=== PATIENT | male | born 1970 | race Caucasian/White ===

== ENCOUNTER → 2017-12-26 13:45 | Outpatient (CLI) | payer OTHER, SELFPAY ==
[2017-12-26 16:13] LABS: ALB/GLOB Ratio 1.1 RATIO (0.9-2.4); AST(SGOT) 20 U/L (15-37); Alanine Aminotransfer ALT/SGPT 37 U/L (16-61); Albumin, Serum 4.1 g/dL (3.2-5.0); Alkaline Phosphatase 81 U/L (45-117); Anion Gap 8 (5-15); BUN 19 mg/dL (7-18); BUN/Creat Ratio 27.5 RATIO (10-20); Calcium,Total 8.5 mg/dL (8.5-10.1); Chloride 103 mmol/L (98-107); Cholesterol 81 mg/dL (200); Creatinine, Serum 0.69 mg/dL (0.70-1.30); EST Glomerular Filtration Rate 130 mL/min (>60); Est Glom Filt Rate - Afr Amer 158 mL/min (>60); Globulin 3.6 g/dL (2.2-4.2); Glucose 80 mg/dL (74-106); High Density Lipoprotein 33 mg/dL; Potassium 4.2 mmol/L (3.5-5.1); Protein, Total 7.7 g/dL (6.4-8.2); Sodium Level 138 mmol/L (136-145); Triglycerides 85 mg/dL; Very Low Density Lipoprotein 17 mg/dL (5-40)
== END ==
PROVIDERS: Family Provider Family Medicine; PCP Family Medicine; Visit Provider Family Medicine
DX: E11.9 Type 2 diabetes mellitus without complications (principal)
CPT/HCPCS: 36415; 80053; 80061

== ENCOUNTER 2018-04-09 20:35 | Emergency (ER) | payer OTHER, SELFPAY ==
[2018-04-09 20:36] VITALS: BP 137/86; PULSE 79; RESP 18; TEMP 37.1; O2SAT 98; BMI 27.2
--- NOTE | 2018-04-09 21:25 | ED.VISSUMM ---
- ER Visit Summary Date of Service: 04/09/18 Chief Complaint: [Facial laceration] History of Present Illness: The patient is a 47 M [presents the emergency department with complaint of laceration to the left side of his face. Patient states that he was cutting some banding at work when he went to throw it he had not cut the opposite end of it and it sprung back and struck him in the left side of his face. Patient states that he is on some sort of a blood thinner but cannot think of the name of it. Patient has had cardiac stents in the past. Patient is a diabetic.] Patient does not want to file this under workman's comp. Physical Examination: [HEENT-PERRLA, EOMI. Cranial nerves II through XII grossly intact. TMs clear. Mucous membranes moist. No adenopathy. Left side of the face just anterior to the ear there is a superficial abrasion with a small 5 mm laceration that is oozing blood persistently. No bony tenderness. No foreign bodies noted in the wound. Cardiovascular-regular rate and rhythm without murmur or ectopy Lungs-clear to auscultation, chest wall stable without crepitus or subcu emphysema Abdomen-normoactive bowel sounds, soft, nontender, no rebound or rigidity, no peritoneal signs. Extremities-intact ?4, normal range of motion, normal pulses, atraumatic] Test Results: [None indicated] Emergency Department Course and Treatment: [Laceration repair-wound sterilely draped and prepped. Wound cleansed with Shur-Clens and irrigated with copious saline. Patient did not want anesthetic. Using 5-0 nylon 1 single interrupted suture placed with good wound edge approximation and hemostasis was obtained.] Treatment Plan: [Patient will have clean dressing applied and advised to have sutures removed in 5 days.] Disposition: [Discharged home in stable condition] Impression: [Facial laceration 5 mm-simple repair] This note was generated with [employer] dictation software. It may contain incorrect words, spelling, and punctuation that were not noted in review of the chart prior to signing ED Disposition - Plan for ED Patient: Chief Complaint: Laceration Referrals: Jason Howell MD [Primary Care Provider] -
--- NOTE | 2018-04-09 21:27 | ED.DEP ---
ED Disposition - Plan for ED Patient: Chief Complaint: Laceration Instructions: ED Laceration Facial Sutr Tape Referrals: Jason Howell MD [Primary Care Provider] - 5 Days for suture removal
[2018-04-09 21:53] VITALS: RESP 16
--- NOTE | 2018-04-09 21:54 | ED.RN ---
REVIEWED D/C INSTRUCTIONS, FOLLOW UP CARE, AND S/S THAT WOULD WARRANT A RETURN TO THE ED WITH PT. PT VERBALIZED AN UNDERSTANDING AND DENIES FURTHER QUESTIONS FOR THIS RN. PT SKIN P/W/D, RESP EVEN AND UNLABORED, PT A&O X 3, NO DISTRESS NOTED. PT AMBULATED OUT OF ED, GAIT STEADY.
== END 2018-04-09 21:55 | disposition home or self-care (01) ==
PROVIDERS: Emergency Provider Emergency Medicine; Family Provider Family Medicine; PCP Family Medicine
DX: S01.412A Laceration without foreign body of left cheek and temporomandibular area, initial encounter (principal); E11.9 Type 2 diabetes mellitus without complications; I25.10 Atherosclerotic heart disease of native coronary artery without angina pectoris; Z72.0 Tobacco use; Z95.5 Presence of coronary angioplasty implant and graft; Z79.4 Long term (current) use of insulin; Z79.899 Other long term (current) drug therapy; W20.8XXA Other cause of strike by thrown, projected or falling object, initial encounter; Y93.89 Activity, other specified; Y92.89 Other specified places as the place of occurrence of the external cause; Y99.0 Civilian activity done for income or pay
CPT/HCPCS: 12011; 99282

== ENCOUNTER → 2018-04-13 09:23 | Outpatient (CLI) | payer OTHER, SELFPAY ==
[2018-04-13 11:58] LABS: Erythrocyte Sedimentation Rate 4 mm/hr (0-15)
[2018-04-13 12:05] LABS: Absolute Lymphocyte Count 3.15 X10^3/ul (0.83-4.51); Absolute Neutrophil Count 5.4 X10^3/uL (2.0-7.7); Basophil# 0.03 X10^3/uL; Basophil% 0.3 % (0-1); Eosinophil# 0.24 X10^3/uL; Eosinophils% 2.5 % (0-5); Hematocrit 49.6 % (40-54); Hemoglobin 17.8 g/dl (13.0-16.5); Lymphocyte # 3.15 X10^3/ul (4.0); Lymphocyte % 32.6 % (19-41); Mean Corp Hgb Conc 35.9 g/gl (32-36); Mean Corpuscular Hgb 35.5 pg (27.0-32.0); Mean Corpuscular Volume 98.8 fL (80-94); Mean Platelet Vol. 11.8 fl (6.2-12.0); Monocyte# 0.85 X10^3/uL; Monocyte% 8.8 % (0-10); Neutrophil # 5.37 X10^3/uL (2.7-7.7); Neutrophil % 55.6 % (47-70); Platelet Count 183 K/mm3 (150-450); RBC Distribution Width CV 12.5 % (11.6-14.6); Red Blood Count 5.02 M/mm3 (4.6-6.2); White Blood Count 9.7 K/mm3 (4.4-11.0)
[2018-04-13 12:09] LABS: POSITIVE COUNT NO; POSITIVE DIFFERENTIAL NO; POSITIVE MORPHOLOGY NO
[2018-04-13 12:20] LABS: ALB/GLOB Ratio 1.1 RATIO (0.9-2.4); AST(SGOT) 59 U/L (15-37); Alanine Aminotransfer ALT/SGPT 69 U/L (16-61); Albumin, Serum 4.1 g/dL (3.2-5.0); Alkaline Phosphatase 137 U/L (45-117); Anion Gap 10 (5-15); BUN 14 mg/dL (7-18); BUN/Creat Ratio 15.3 RATIO (10-20); Calcium,Total 9.5 mg/dL (8.5-10.1); Chloride 101 mmol/L (98-107); Creatinine, Serum 0.92 mg/dL (0.70-1.30); EST Glomerular Filtration Rate 94 mL/min (>60); Est Glom Filt Rate - Afr Amer 114 mL/min (>60); Globulin 3.8 g/dL (2.2-4.2); Glucose 350 mg/dL (74-106); Potassium 4.4 mmol/L (3.5-5.1); Protein, Total 7.9 g/dL (6.4-8.2); Sodium Level 138 mmol/L (136-145)
== END ==
PROVIDERS: Family Provider Family Medicine; PCP Family Medicine; Visit Provider Family Medicine
DX: R63.4 Abnormal weight loss (principal)
CPT/HCPCS: 36415; 80053; 85025; 85652

== ENCOUNTER → 2018-07-09 08:31 | Outpatient (CLI) | payer OTHER, SELFPAY ==
[2018-07-09 10:26] LABS: ALB/GLOB Ratio 1.2 RATIO (0.9-2.4); AST(SGOT) 22 U/L (15-37); Alanine Aminotransfer ALT/SGPT 40 U/L (16-61); Alkaline Phosphatase 99 U/L (45-117); Anion Gap 9 (5-15); BUN 11 mg/dL (7-18); BUN/Creat Ratio 14.8 RATIO (10-20); Calcium,Total 8.9 mg/dL (8.5-10.1); Chloride 104 mmol/L (98-107); Cholesterol 97 mg/dL (200); Creatinine, Serum 0.74 mg/dL (0.70-1.30); EST Glomerular Filtration Rate 120 mL/min (>60); Est Glom Filt Rate - Afr Amer 145 mL/min (>60); Globulin 3.4 g/dL (2.2-4.2); Glucose 159 mg/dL (74-106); High Density Lipoprotein 33 mg/dL; Potassium 3.7 mmol/L (3.5-5.1); Protein, Total 7.4 g/dL (6.4-8.2); Sodium Level 139 mmol/L (136-145); Thyroid Stim Hormone (TSH) 1.45 uIU/mL (0.358-3.74); Triglycerides 146 mg/dL; Very Low Density Lipoprotein 29 mg/dL (5-40)
== END ==
PROVIDERS: Family Provider Family Medicine; PCP Family Medicine; Visit Provider Family Medicine
DX: E11.9 Type 2 diabetes mellitus without complications (principal)
CPT/HCPCS: 36415; 80053; 80061; 84403; 84443

== ENCOUNTER → 2019-07-22 | Outpatient (CLI) | payer OTHER, SELFPAY ==
[2019-07-22 10:46] LABS: ALB/GLOB Ratio 1.1 RATIO (0.9-2.4); AST(SGOT) 31 U/L (15-37); Alanine Aminotransfer ALT/SGPT 41 U/L (16-61); Albumin, Serum 3.9 g/dL (3.2-5.0); Alkaline Phosphatase 97 U/L (45-117); Anion Gap 8 (5-15); BUN 16 mg/dL (7-18); BUN/Creat Ratio 17.6 RATIO (10-20); CRP, High Sensitivity Cardiac 0.54 mg/L; Calcium,Total 9.1 mg/dL (8.5-10.1); Chloride 103 mmol/L (98-107); Cholesterol 126 mg/dL (200); Creatinine, Serum 0.91 mg/dL (0.70-1.30); EST Glomerular Filtration Rate 95 mL/min (>60); Est Glom Filt Rate - Afr Amer 114 mL/min (>60); Globulin 3.5 g/dL (2.2-4.2); Glucose 206 mg/dL (74-106); High Density Lipoprotein 32 mg/dL; Protein, Total 7.4 g/dL (6.4-8.2); Sodium Level 140 mmol/L (136-145); Thyroid Stim Hormone (TSH) 1.45 uIU/mL (0.358-3.74); Triglycerides 354 mg/dL; Very Low Density Lipoprotein 71 mg/dL (5-40)
== END | disposition home or self-care (01) ==
LOC: MFPLAB 09:26
PROVIDERS: Family Provider Family Medicine; PCP Family Medicine; Visit Provider Family Medicine
DX: E11.9 Type 2 diabetes mellitus without complications (principal)
CPT/HCPCS: 36415; 80053; 80061; 84403; 84443; 86141

== ENCOUNTER 2019-09-17 21:43 | Inpatient (IN) | payer OTHER, SELFPAY ==
[2019-09-17 21:45] VITALS: PULSE 71; RESP 18; TEMP 37.3; O2SAT 95; BMI 29.7
--- NOTE | 2019-09-17 22:00 | CT_ITS ---
HISTORY: CONFUSION,FEVER,HEADACHE AND DIFFICULT SPEECH SINCE CHRISTMASHX:HTN,DIABETES,IL WITH STENT TECHNIQUE: Multiple axial images were obtained of the brain without intravenous contrast. A radiation dose optimization technique was used for this scan. COMPARISON: None FINDINGS: # of images incl. paperwork: 257 Mucuo-serous retention cyst within the right maxillary sinus. The remainder the paranasal sinuses and mastoid air cells are free of disease. Brain volume is normal. Carranza-white differentiation is preserved. No hydrocephalus. No acute ischemia. No acute intracranial hemorrhage. CT/Brain/Head without Contrast IMPRESSION: Normal. ASPECT 10. Individualized dose optimization techniques were used for this CT. at 6997 Reported and signed by: Mazin Kennedy MD Electronically Signed: Mazin Kennedy MD at 22:57 EST Tel , Service support ,
--- NOTE | 2019-09-17 22:00 | EKG12_ITS ---
Test Reason : Blood Pressure : / mmHG Vent. Rate : 075 BPM Atrial Rate : 075 BPM P-R Int : 138 ms QRS Dur : 122 ms QT Int : 380 ms P-R-T Axes : 035 -44 020 degrees QTc Int : 424 ms Normal sinus rhythm Left axis deviation Septal infarct , age undetermined Abnormal ECG Confirmed by URI SORTO, SAMANTA ([id number]), digital editor AJAY IGLESIAS ([id number]) on 09/21/2019 9:50:17 AM Referred By: BENEDICTO Confirmed By:SAMANTA GREWAL MD
--- NOTE | 2019-09-17 22:01 | RAD_ITS ---
HISTORY: CONFUSION, DIFFICULTY WITH SPEECH. FEVER AND SCHULTZ X 3 DAYS. EXAM: XR Chest 1 View: COMPARISON: June 09, 2015 FINDINGS: # of images incl. paperwork: 1 Lungs are clear. Heart is not enlarged. No acute osseous pathology perceived. Pulmonary vascularity is distinct. No effusions. RAD/Chest 1 View (Portable) IMPRESSION: Normal. at 2221 Reported and signed by: Mazin Kennedy MD Electronically Signed: Mazin Kennedy MD at 22:20 EST Tel , Service support ,
[2019-09-17 22:17] LABS: Bacteria 0 SEEN /hpf (None Seen); Mucous, Urine 0 SEEN /hpf (<or=2+); Red Blood Cells-Urine 0 SEEN /hpf (0-5); Squamous Epithelial Cells - UA 0 SEEN /hpf (0-5); White Blood Cells 0 SEEN /hpf (0-5)
[2019-09-17 22:20] LABS: Color, Urine Yellow (Yellow); Glucose, Dipstick 1000 mg/dl (Normal); Ketone-Dipstick 5 mg/dl (Negative); Leukocyte Esterase-Dipstick Negative /ul (Negative); Nitrite-Dipstick Negative (Negative); Occult Blood-Urine Negative /ul (Negative); Protein-Dipstick Negative (Negative); Urine Bilirubin Dipstick Negative (Negative); Urine Clarity Clear (Clear); Urine Urobilinogen Normal (Normal)
[2019-09-17 22:20] LABS: Absolute Neutrophil Count 9.5 X10^3/uL (2.0-7.7); Basophil# 0.04 X10^3/uL; Basophil% 0.3 % (0-1); Eosinophil# 0.01 X10^3/uL; Eosinophils% 0.1 % (0-5); Hematocrit 42.9 % (40-54); Hemoglobin 15.1 g/dL (13.0-16.5); Lymphocyte % 17.9 % (19-41); Mean Corp Hgb Conc 35.2 g/dL (32-36); Mean Corpuscular Hgb 34.7 pg (27.0-32.0); Mean Corpuscular Volume 98.6 fL (80-94); Mean Platelet Vol. 10.8 fl (6.2-12.0); Monocyte# 1.45 X10^3/uL; Monocyte% 10.8 % (0-10); NRBC Flagged by Analyzer 0 % (0-5); Neutrophil # 9.48 X10^3/uL (2.7-7.7); Neutrophil % 70.6 % (47-70); Platelet Count 160 K/mm3 (150-450); RBC Distribution Width SD 43.9 fl (35.1-43.9); Red Blood Count 4.35 M/mm3 (4.6-6.2); White Blood Count 13.4 K/mm3 (4.4-11.0)
[2019-09-17 22:34] LABS: Anion Gap 11 (5-15); BUN 15 mg/dL (7-18); BUN/Creat Ratio 13.8 RATIO (10-20); Calcium,Total 8.5 mg/dL (8.5-10.1); Chloride 94 mmol/L (98-107); Creatinine, Serum 1.09 mg/dL (0.70-1.30); EST Glomerular Filtration Rate 77 mL/min (>60); Est Glom Filt Rate - Afr Amer 93 mL/min (>60); Estimated Creatinine Clearance 82.88 ml/min; Glucose 255 mg/dL (74-106); Potassium 3.7 mmol/L (3.5-5.1); Sodium Level 131 mmol/L (136-145)
[2019-09-17] MEDS: 0.9% Normal Saline 1,000 ML 1000 ML IV (22:36)
[2019-09-17 22:55] VITALS: BP 135/75; PULSE 71; RESP 23; O2SAT 96
[2019-09-17 23:00] VITALS: PULSE 76; RESP 17; O2SAT 96
--- NOTE | 2019-09-17 23:17 | ED.VISSUMM ---
- ER Visit Summary Date of Service: 09/17/19 Chief Complaint: [Mental status change] History of Present Illness: The patient is a 48 M [presents to the emergency department complaint of mental status change mostly since this morning per friend. Patient complained of not feeling well during [place] time when he had headache as well as nausea and vomiting. Patient did have a fever. He had diarrhea yesterday. He denies any chest pain or shortness of breath. He denies any significant cough. He denies any neck pain. Patient has history of coronary artery disease as well as diabetes type 2. Patient has 2 cardiac stents. Patient's friends concerned about possible carbon monoxide poisoning as he has had some furnace issues.] Physical Examination: [HEENT-PERRLA, EOMI. Cranial nerves II through XII grossly intact. TMs clear. Mucous membranes moist. No adenopathy. Patient answer some questions appropriately but when asked to name a pen her wallet is unable to do so. I do not appreciate any slurred speech. Cardiovascular-regular rate and rhythm without murmur or ectopy Lungs-clear to auscultation, chest wall stable without crepitus or subcu emphysema Abdomen-normoactive bowel sounds, soft, nontender, no rebound or rigidity, no peritoneal signs. Neuro eprz-gkiewr-cp-nose and rmtd-km-eaxa testing within normal limits, negative Romberg, negative for drift, fundi benign. NIH stroke scale is 0. He really does not have dysarthria. He displays more of a encephalopathic type presentation. Extremities-intact ?4, normal range of motion, normal pulses, atraumatic] Test Results: [EKG obtained arrival shows sinus rhythm with a ventricular rate of 75 bpm with old septal infarct noted. CBC with differential obtained showed a white count of 13.4, hemoglobin 15, hematocrit 43, platelets 160. Chemistries unremarkable. Urinalysis normal. Troponin is less than 0.015. Lactate was 5.0.] LP results pending Emergency Department Course and Treatment: [IV line was established. Patient was given normal saline a liter bolus. Patient was consented for lumbar puncture given his mental status change and fever as well as a complaint of headache. Discussed risk versus benefit with patient as well as his mother and friend and his mother will sign the consent. Iliac crests were located with both hands and then area of the L3-L4 space was marked with fingernail. Area cleaned with Betadine. Local lidocaine was infiltrated to the skin. The spinal needle was introduced until a small pop was felt and immediately clear fluid was obtained and collected in 4 tubes. The stylette was replaced and needle and stylette removed as a unit. Band-Aid applied and patient was made to lay flat for 20 minutes. Patient tolerated procedure well. Patient was started on Rocephin as well as vancomycin and acyclovir.] Treatment Plan: [Admit] Disposition: [Admit] Impression: [Septic shock Fever etiology uncertain Encephalopathy Lumbar puncture performed by ED physician.] This note was generated with [employer] dictation software. It may contain incorrect words, spelling, and punctuation that were not noted in review of the chart prior to signing ED Disposition - Plan for ED Patient: Referrals: Jason Howell MD [Primary Care Provider] -
[2019-09-17 23:19] LABS: Carboxyhemoglobin Frac (CO) 6.3 % (0.0-1.5)
[2019-09-17 23:40] LABS: Alcohol, Blood (Medical)-Serum < 3.0 mg/dL
--- NOTE | 2019-09-17 23:54 | HP.PCM_ITS ---
Problem List (1) Meningitis versus encephalitis Status: Suspected (2) Acute encephalopathy Status: Acute (3) Septic shock Status: Acute (4) Hyperlipidemia Status: Chronic (5) Type 2 diabetes mellitus Status: Chronic History of Present Illness Date of Admission: 09/17/19 Chief Complaint: Confusion,/altered mental status. The patient is a 48 year old M patient with past medical history as mentioned above because of change of mental status. At this time, patient is alert to himself, seems confused and disoriented to place and time and he was very slow in responding to questions and sometimes provide incoherent answers. Patient's mother was at the bedside and she assisted provided some information. The patient lives alone. According to the patient mother, patient's friend called her and mentioned that the patient has been acting strangely, confused and he has been having fevers. Patient himself complained that he has been not feeling well and sick since [place], has been having fevers of up to 103 Fahrenheit, associated with nausea, vomiting as well as diarrhea. He has been having diarrhea around twice a day over the last couple of days. Also, he complained of headache that has been going on for 2 to 3 days, persistent headache, mild to moderate, and no associated symptoms. He denied neck pain, sore throat, nasal or sinus congestion. He denied skin rash or sick contacts. He had a history of type 2 diabetes mellitus and apparently, blood sugar has been under fair control, he has been on insulin, Janumet and Invokana. He had a history of CAD status post stents x3 and he has been on beta-blockers, ISABELLA inhibitors and statins. He had a history of hyperlipidemia and he has been on statins. In the emergency department, patient was afebrile, blood pressure and heart rate were stable and pulse ox was 96% on 2 L. He remained confused, oriented to himself, knows his full name, knew his mother but he is disoriented to time and he was providing inappropriate answers on occasions. His routine blood work was remarkable for leukocytosis with neutrophilia, sodium of 131, glucose of 255. EKG revealed normal sinus rhythm without evidence of acute segment changes or cardiac arrhythmias. Troponin was negative. Ammonia level was normal. Lactic acid was 5. CT scan brain showed no acute infarct or hemorrhage. Chest x-ray showed no acute infiltrate or consolidation, no effusion. Urinalysis showed no evidence of acute cystitis. Blood alcohol level was less than 3. Urine drug screen is negative. Lumbar puncture was done and revealed clear, colorless fluid, there was 21 WBCs, 1 RBC, CSF glucose 137 and CSF protein was 46. Patient was started empirically on IV acyclovir, vancomycin and Rocephin for presumed acute meningitis versus acute encephalitis. He is being admitted for septic shock with suspected acute meningitis versus encephalitis although CSF findings is not compatible with either. Past Medical History Past Medical History (Chronic Problems): Chronic Problems Coronary artery disease status post sten (Chronic) Hyperlipidemia (Chronic) Type 2 diabetes mellitus (Chronic) Allergies Penicillins [PCN] Allergy (Verified 09/17/19 21:48) Rash Home Medications: Ambulatory Orders Medication Instructions Recorded Atorvastatin Calcium 40 mg PO DAILY 04/09/18 Canagliflozin [Invokana] 300 mg PO DAILY 04/09/18 Carvedilol 6.25 mg PO BID 04/09/18 Insulin Glargine,Hum.rec.anlog 70 unit SQ QHS 04/09/18 [Lantus] Lisinopril [Zestril] 10 mg PO DAILY 04/09/18 Sitagliptin Phos/Metformin HCl 1 tab PO DAILY 04/09/18 [Janumet Xr 100-1,000 mg Tablet] Aspirin 81 mg PO DAILY 09/18/19 Prasugrel HCl [Effient] 10 mg PO DAILY 09/18/19 Surgical History: no surgical history Psychiatric History: No pertinent psych hx Lives: Alone Smoking Status: Current every day smoker Tobacco Use: Cigarettes Alcohol: None Drugs: None - *Family History Maternal History Items: No pertinent history Paternal History Items: No pertinent history Review of Systems Constitutional: Reports: Anorexia, Fever, Weakness, Fatigue Eyes: Denies: Blurred vision, Double vision, Drainage, Redness HEENT: Reports: Head Aches. Denies: Difficulty Hearing, Ear Pain, Eye Pain, Nasal Congestion, Sore Throat Cardiovascular: Denies: Chest Pain, Chest Pressure, Chest Tightness, Edema, Heaviness, Light Headedness, Palpitations, Paroxysmal Noc. Dyspnea, Syncope Respiratory: Denies: Cough, Pleuritic Pain, Shortness of Breath, Sputum production, Wheezing Gastrointestinal: Reports: Diarrhea, Nausea, Vomiting. Denies: Abdominal Pain, Constipation Genitourinary: Denies: Dysuria, Frequency, Hematuria Musculoskeletal: Denies: Arm Pain, Back Pain, Foot Pain Skin: Denies: Dryness, Rash Neurological: Reports: Confusion, Headaches. Denies: Balance problems, Double vision, Change in Speech, Incoordination, Numbness, Tingling Psychiatric: Denies: Anxiety, Depression Endocrine: Denies: Change in Body Habitus, Polydipsia, Polyuria VTE Information - Inpt Only VTE Present on Admission: No VTE Mechan Device Prophylaxis: None VTE Pharm Prophylaxis ordered?: Yes Patient Problems: Active and Suspected Problems Meningitis versus encephalitis (Suspected) Acute encephalopathy (Acute) Septic shock (Acute) - Physical Exam Vitals/I&O's: Vital Signs Temp Pulse Resp BP Pulse Ox 99.1 F 76 17 135/75 H 96 09/17/19 21:45 09/17/19 23:00 09/17/19 23:00 09/17/19 22:55 09/17/19 23:00 Oxygen Flow Rate (L/min) 2 Oxygen Delivery Method Nasal Cannula Weight: 201 lb 0.985 oz Body Mass Index (BMI) 29.7 Intake and Output for Last 24 Hours 09/15/19 09/16/19 09/17/19 23:59 23:59 23:59 Intake Total 1000 / 1000 Balance 1000 / 1000 General: Alert, Cooperative, No apparent distress, Confused, Disoriented HEENT: Atraumatic, PERRLA, EOMI, Normocephalic Oral: Moist Mucosa, No Gingival or Mucosal Lesions/ Ulcerations Neck: Supple, No JVD, Negative Carotid Bruits, No Nuchal Rigidity, Trachea Midline, Thyroid Normal Size and Texture Lungs: Clear to auscultation, Normal air movement, No rhonchi, No wheeze, No rales, Diminished Cardiovascular: Regular rate, Regular Rhythm, Normal S1, Normal S2, No murmurs, PMI Normal Abdomen: Bowel Sounds Present, Soft, Non Tender, Non-Distended, No Hepato- splenomegaly Extremities: No clubbing, No cyanosis, No edema Skin: No rashes, No breakdown Lymphatic: No Cervical, Supraclavicular, or Inguinal Adenopathy Neurological: Cranial nerves II-XII grossly intact, Motor Exam 5/5 strength throughout Psych/Mental Status: Normal Affect, Appropriate Microbiology Past 72 Hours 09/17/19 23:02 Mucosa - Nasopharyngeal Influenza Types A,B Direct FA ([facility] [place]) - Final Laboratory Results 09/17/19 21:50: WBC 13.4 H, RBC 4.35 L, Hgb 15.1, Hct 42.9, MCV 98.6 H, MCH 34.7 H, MCHC 35.2, RDW Std Deviation 43.9, RDW Coeff of Abhi 12.0, Plt Count 160, MPV 10.8, Immature Gran % (Auto) 0.300, Neut % (Auto) 70.6 H, Lymph % (Auto) 17.9 L , Rabun % (Auto) 10.8 H, Eos % (Auto) 0.1, Baso % (Auto) 0.3, Absolute Neuts (auto) 9.5 H, Absolute Lymphs (auto) 2.40, Nucleated RBC % 0 09/17/19 21:50: Sodium 131 L, Potassium 3.7, Chloride 94 L, Carbon Dioxide 26.0, Anion Gap 11, BUN 15, Creatinine 1.09, Estim Creat Clear Calc 82.88, Est GFR (MDRD) Af Amer 93, Est GFR (MDRD) Non-Af 77, BUN/Creatinine Ratio 13.8, Glucose 255 H, Calcium 8.5, Troponin I < 0.015 09/17/19 21:50: Lactic Acid 5.0 H* 09/17/19 21:50: Ethyl Alcohol < 3.0 09/17/19 22:10: Urine Color Yellow, Urine Clarity Clear, Urine pH 5.0, Ur Specific [place] 1.010, Urine Protein Negative, Urine Glucose (UA) 1000 H, Urine Ketones 5 H, Urine Occult Blood Negative, Urine Nitrite Negative, Urine Bilirubin Negative, Urine Urobilinogen Normal, Ur Leukocyte Esterase Negative, Urine RBC 0 SEEN, Urine WBC 0 SEEN, Ur Squamous Epith Cells 0 SEEN, Urine Bacteria 0 SEEN, Urine Mucus 0 SEEN 09/17/19 22:10: Urine Opiates Screen Pending, Urine Methadone Screen Pending, Ur Barbiturates Screen Pending, Ur Phencyclidine Scrn Pending, Ur Amphetamines Screen Pending, U Methamphetamin-MDMA Pending, U Benzodiazepines Scrn Pending, Urine Cocaine Screen Pending, U Cannabinoids Screen Pending, Ur Drug Screen Comment 09/17/19 22:35: VBG Carboxyhemoglobin 6.3 H 09/17/19 23:16: Ammonia Pending 09/17/19 23:35: HSV I DNA PCR Cancelled, HSV II DNA PCR Cancelled 09/17/19 23:35: CSF VZV DNA (PCR) Pending, Enterovirus RNA (PCR) Pending, HSV I DNA PCR Pending, HSV II DNA PCR Pending 09/17/19 23:35: CSF Glucose Pending 09/17/19 23:35: CSF Total Protein Pending 09/17/19 23:35: CSF Appearance Pending, CSF Color Pending, CSF WBC Pending, CSF RBC Pending, CSF Cell Count Tube # Pending, CSF Total Cell Counted Pending, CSF Comment Pending Clinical Impression(s) from Imaging Studies Brain CT 09/17/19 22:00 IMPRESSION: Normal. ASPECT 10. Individualized dose optimization techniques were used for this CT. at 2258 Reported and signed by: Mazin Kennedy MD Electronically Signed: Mazin Kennedy MD at 22:57 EST Tel , Service support , Chest X-Ray 09/17/19 22:01 IMPRESSION: Normal. at 2221 Reported and signed by: Mazin Kennedy MD Electronically Signed: Mazin Kennedy MD at 22:20 EST Tel , Service support , Current Medications Sodium Chloride () 1,000 mls @ 150 mls/hr IV .[id number] ANGIE Ceftriaxone Sodium 2 gm/ (Sodium Chloride) 50 mls @ 100 mls/hr IV X1 ONE Stop: 09/18/19 00:06 Acyclovir Sodium 600 mg/ (Dextrose) 262 mls @ 262 mls/hr IV Q8 ANGIE Vancomycin HCl 1,250 mg/ (Sodium Chloride) 275 mls @ 250 mls/hr IV X1 ONE Stop: 09/18/19 01:00 Assessment/Plan All Active Problems Acute encephalopathy (Acute) Septic shock (Acute) This is a 48 years old male patient presented to the emergency room because of fever and confusion as well as nausea, vomiting and diarrhea, found to have acute encephalopathy and septic shock without obvious source of infection but working diagnosis is suspected meningitis versus encephalitis. #1 septic shock: No strong evidence of acute infection. Probable diagnosis is acute meningitis versus encephalitis. Patient has been having diarrhea as well. Chest x-ray showed no acute findings. CT scan brain showed no acute findings. Urinalysis was unremarkable. Lactic acid is 5, patient does have leukocytosis but he is afebrile. Lumbar puncture reviewed as above. CSF glucose is high and CSF protein is high range of normal. It has only 21 WBCs, 1 RBC. No lymphocytic predominance. Plan: Admit to ICU, blood culture, urine culture, CSF culture, start empiric IV Rocephin, acyclovir and vancomycin, stool studies including stool for enteric pathogens and C. difficile, repeat lactic acid in 3 hours, IV fluid bolus 3 L, maintenance IV fluids, Tylenol PRN, critical care consult. #2 suspected encephalitis/meningitis: CSF revealed as above. Plan to start IV antibiotics empirically including IV acyclovir, vancomycin and Rocephin. Blood and urine cultures as well as CSF culture. #3 acute encephalopathy: CT scan brain without acute findings. Serum ammonia was normal. He has no deficit on physical exam. It is probably metabolic encephalopathy secondary to septic shock. Plan as above. #4 type 2 diabetes mellitus: ADA diet, Accu-Cheks, insulin sliding scale, continue Invokana, glargine insulin, hold Janumet. Will check hemoglobin A1c. #5 CAD status post stents: Stable, no acute issues. EKG was unremarkable. Troponin was negative. Continue aspirin, statins, Coreg and lisinopril. #6 hyperlipidemia: Continue statins. #7 DVT prophylaxis on subcu Lovenox. This note was generated with [employer] dictation software. It may contain incorrect words, spelling, and punctuation that were not noted in checking the note before signing. Code Visit Inpatient E&M: 57682 Init Hosp L3
[2019-09-18] VITALS (22 sets, daily range): BP systolic 116–155; BP diastolic 65–84; PULSE 55–85; RESP 16–29; TEMP 36.9–39.5; O2SAT 91–99; BMI 29.7
[2019-09-18 00:07] LABS: Glucose Spinal Fluid 137 mg/dL (40-75)
[2019-09-18] MEDS: 0.9% Normal Saline 1,000 ML 150 ML IV (00:09)
[2019-09-18 00:13] LABS: Body Fluid Mononuclear WBC % 95.3 %; Body Fluid Polynuclear WBC # 0.001 10^3/uL; Body Fluid Polynuclear WBC % 4.7 %; Total Cell Count CSF 0.021 10^3/uL; White Count, CSF 0.021 10^3/uL (0.000-0.005)
[2019-09-18] MEDS: 0.9% Normal Saline 1,000 ML 999 ML IV ×2 (00:23→00:48)
[2019-09-18 00:32] LABS: Appearance CSF (character) CLEAR (Clear); Auto B Fluid Analyzer BKGD Ct COUNTS W/IN LIMITS (W/IN LIMITS); CSF Color COLORLESS (Colorless); Tested Tube # 1
[2019-09-18 00:33] LABS: RBC Count, Spinal Fluid 1 /mm-3 (None seen)
[2019-09-18 00:34] LABS: Body Fluid QC Type(s) BF1Q
--- NOTE | 2019-09-18 00:46 | ED.RN ---
THIS RN ENTERED MEDICATION BOTTLES BROUGHT IN BY FAMILY. PT FAMILY UNSURE OF INSULIN DOSES AND ARE TO CALL INTO ED TO GIVE DOSES WHEN HOME AND LOOKING AT HIS PRESCRIPTION.
[2019-09-18 00:58] LABS: Amphetamine Urine VISTA NEGATIVE (<1000 ng/mL); Barbiturate Urine VISTA NEGATIVE (< 200 ng/mL); Benzodiazepine Urine VISTA NEGATIVE (< 200 ng/mL); Cocaine Urine VISTA NEGATIVE (< 300 ng/mL); Ecstacy Urine VISTA NEGATIVE (< 500 ng/mL); Methadone Urine VISTA NEGATIVE (< 300 ng/mL); PCP Urine VISTA NEGATIVE (< 25 ng/mL); THC Urine VISTA NEGATIVE (< 50 ng/mL); Vista UDS pH Range 5
[2019-09-18] MEDS: 0.9% Normal Saline 1,000 ML 100 ML IV ×2 (02:01→12:14)
--- NOTE | 2019-09-18 02:05 | NURSING ---
NOV shows 2416ml NS intake for pt in ER but 3L was administered in total. Unable to correct documentation from ER on NOV.
[2019-09-18 02:09] LABS: Reflex Lactate? Y
[2019-09-18] MEDS: Famotidine 200 MG/20 ML MDV 20 MG in 0.9% Normal Saline (Pres. free 8 ML 300 MG IV ×3 (03:04→21:20)
[2019-09-18 03:17] LABS: Absolute Lymphocyte Count 1.85 X10^3/uL (0.83-4.51); Absolute Neutrophil Count 8.9 X10^3/uL (2.0-7.7); Basophil# 0.03 X10^3/uL; Basophil% 0.3 % (0-1); Hematocrit 40.5 % (40-54); Hemoglobin 14.1 g/dL (13.0-16.5); Lymphocyte # 1.85 X10^3/ul (4.0); Lymphocyte % 15.6 % (19-41); Mean Corp Hgb Conc 34.8 g/dL (32-36); Mean Corpuscular Hgb 34.6 pg (27.0-32.0); Mean Corpuscular Volume 99.3 fL (80-94); Mean Platelet Vol. 10.2 fl (6.2-12.0); Monocyte# 1.06 X10^3/uL; Monocyte% 8.9 % (0-10); NRBC Flagged by Analyzer 0 % (0-5); Neutrophil # 8.85 X10^3/uL (2.7-7.7); Neutrophil % 74.6 % (47-70); Platelet Count 127 K/mm3 (150-450); RBC Distribution Width CV 12.1 % (11.6-14.6); RBC Distribution Width SD 44.1 fl (35.1-43.9); Red Blood Count 4.08 M/mm3 (4.6-6.2); White Blood Count 11.9 K/mm3 (4.4-11.0)
[2019-09-18 03:25] LABS: Lactic Acid 1.4 mmol/L (0.4-1.9)
--- NOTE | 2019-09-18 03:29 | PCM.RX.CS ---
Consult Pharmacy has been consulted to manage selected antiobiotic: Vancomycin Type of Consult: New start Suspected Infection: Sepsis Prior Doses of Antibiotics Received/Current Regimen: Medications Vancomycin HCl 1,500 mg/ (Sodium Chloride) 530 mls @ 250 mls/hr IV Q12H ANGIE Discontinued Medications Vancomycin HCl 1,250 mg/ (Sodium Chloride) 275 mls @ 250 mls/hr IV X1 ONE Stop: 09/18/19 01:00 Last Admin: 09/18/19 03:04 Dose: 250 mls/hr Microbiology: Microbiology 09/17/19 23:35 Csf, Spinal Fluid Gram Stain - Preliminary 09/17/19 23:02 Mucosa - Nasopharyngeal Influenza Types A,B Direct FA ([facility]) - Final Weight used for dosin.2 kg Estimated Creatinine Clearance: 83 Goal Trough: 15-20 mcg/mL Pharmacy Plan for Drug Dosing: Pharmacy Service will continue to monitor and adjust dosing as required. Follow-Up Labs: Trough Vancomycin Labs to be done on [date and time ordered]: 09/19/19 @1430
[2019-09-18 03:33] LABS: Anion Gap 4 (5-15); BUN 12 mg/dL (7-18); BUN/Creat Ratio 14.7 RATIO (10-20); Chloride 100 mmol/L (98-107); Creatinine, Serum 0.82 mg/dL (0.70-1.30); EST Glomerular Filtration Rate 107 mL/min (>60); Est Glom Filt Rate - Afr Amer 130 mL/min (>60); Estimated Creatinine Clearance 106.59 ml/min; Glucose 195 mg/dL (74-106); Sodium Level 133 mmol/L (136-145)
[2019-09-18 03:40] LABS: AST(SGOT) 23 U/L (15-37); Alanine Aminotransfer ALT/SGPT 30 U/L (16-61); Albumin, Serum 3.1 g/dL (3.2-5.0); Alkaline Phosphatase 68 U/L (45-117); Bilirubin, Direct 0.16 mg/dL (0.00-0.30); Globulin 2.8 g/dL (2.2-4.2); Protein, Total 5.9 g/dL (6.4-8.2)
[2019-09-18] MEDS: Insulin Lispro 100 UNIT/ML INSULN.PEN SC ×2 (05:18→16:41)
[2019-09-18 05:26] LABS: Bedside Glucose 171 mg/dL (70-110)
--- NOTE | 2019-09-18 06:42 | MRI_ITS ---
STUDY: MRA OF THE HEAD WITHOUT CONTRAST REASON FOR EXAM: Male, 48 years old. cva, encephalitis, H/A, FEVER,CONFUSION TECHNIQUE: 3-D ekxu-ty-putvko (TOF) imaging was performed with MIPs. The study was performed unenhanced. COMPARISON: None. FINDINGS: Normal bilateral petrous carotid arteries. Normal right cavernous carotid artery with a normal supraclinoid bifurcation. Normal left cavernous carotid artery with a normal supraclinoid bifurcation. Normal right A1 segments of the anterior cerebral artery. Normal left A1 segments of the anterior cerebral artery. Normal intact anterior communicating artery (ACOM). Normal bilateral A2 segments of the anterior cerebral arteries. Normal right M1 and M2 segments of the middle cerebral arteries, with a normal M1 bifurcation. Normal left M1 and M2 segments of the middle cerebral arteries, with a normal M1 bifurcation. Right posterior communicating artery not visualized consistent with normal variant Normal left posterior communicating artery (PCOM). Normal bilateral vertebral arteries. Normal basilar artery with a normal basilar bifurcation. The visualized bilateral superior cerebellar (SCA) arteries are normal. Normal bilateral P1, P2 and visualized P3 segments of the posterior cerebral arteries. There is no demonstrated aneurysm of the [place] of [place]. There is no major vessel occlusion or hemodynamically significant stenosis. There is no demonstrated abnormality of the visualized brain. MRI/MRA Head ONLY without Contrast IMPRESSION: Normal MRA of the head Electronically Signed: All Flores MD at 17:38 EST , Service support ,
--- NOTE | 2019-09-18 06:42 | MRI_ITS ---
STUDY: MRA NECK WITH AND WITHOUT CONTRAST REASON FOR EXAM: Male, 48 years old. cva, encephalitis, H/A, FEVER,CONFUSION TECHNIQUE: 3-D gndk-dj-ybkziq (TOF) imaging was performed in an 1.5 T MRI scanner. DOTAREM IV 18ML was administered for the contrast enhanced images. COMPARISON: None. FINDINGS: RIGHT CAROTID ARTERIES: Normal right common carotid artery (CCA). Normal right common carotid bulb. Mild plaquing of the origin of the right internal carotid (ICA) artery without a hemodynamically significant stenosis. Normal visualized cervical portion of the right internal carotid artery. Normal origin of the right external carotid artery (ECA). LEFT CAROTID ARTERIES: Normal left common carotid artery (CCA). Normal left common carotid bulb. Moderate plaquing of the origin of the left internal carotid (ICA) artery without a hemodynamically significant stenosis. Normal visualized cervical portion of the left internal carotid artery. Normal origin of the left external carotid artery (ECA). VERTEBRAL ARTERIES: Normal antegrade flow within the bilateral vertebral artery without a hemodynamically significant stenosis. MRI/MRA Neck WITH and W/O Contrast IMPRESSION: Atherosclerotic disease without evidence for hemodynamically significant stenosis utilizing NASCET criteria Electronically Signed: All Flores MD at 17:41 EST , Service support ,
[2019-09-18] MEDS: Lisinopril 10 MG Tablet PO (07:48)
[2019-09-18] MEDS: Aspirin 81 MG TAB.CHEW PO (07:48)
[2019-09-18] MEDS: Carvedilol 6.25 MG Tablet PO ×2 (07:48→16:43)
[2019-09-18] MEDS: Enoxaparin 40 MG/0.4 ML Syringe SC (07:49)
[2019-09-18] MEDS: Empagliflozin 25 MG Tablet PO (07:49)
--- NOTE | 2019-09-18 07:51 | CON.PCM_ITS ---
Problem List (1) Coronary artery disease status post sten Status: Chronic (2) Meningitis versus encephalitis Status: Suspected (3) Acute encephalopathy Status: Acute (4) Hyperlipidemia Status: Chronic (5) Type 2 diabetes mellitus Status: Chronic Reason for Consult Date of Consultation: 09/18/19 Reason for Consultation: Suspected meningitis History of Present Illness: The patient is a 48 year old M, with past medical history listed below, who presented to [facility] on 09/17/2019 secondary to mental status change. Patient had reportedly complained of headache, nausea and vomiting on . Patient also developed a fever and treated this symptomatically. Yesterday, patient developed some diarrhea, but denied any chest pain or shortness of breath. Patient has not had any significant neck pain or cough. Patient reportedly had had some furnace issues noted some concern that this may also be a consideration. On arrival to the ER, patient was hemodynamically stable, but had significant difficulty with word finding despite having no slurred speech. Cranial nerves were intact. Patient had no focal deficits and reportedly had an NIH of 0. EKG was unremarkable. Patient was noted to have a leukocytosis of 13.4 and a lacta te of 5. Given these concerns, patient did receive an LP, which he tolerated well. Patient was admitted to the intensive care unit for concerns of meningitis versus encephalitis. Since being in the intensive care unit, patient reportedly has improved with his response times per nursing. Patient continues to answer most questions in yes and no, but is able to give me his date of . Patient denies any neck pain, but is reporting some headache. Patient is not reporting any abdominal pain, nausea or vomiting. Patient is reportedly not having any diarrhea per nursing staff. Patient is not able to provide a complete review of systems, but review of systems otherwise negative from a constitutional, HEENT, respiratory, cardiovascular, GI, genitourinary, musculoskeletal, skin, neurologic, psychiatric and hematologic system unless stated above. Past Medical History Past Medical History (Chronic Problems): Chronic Problems Coronary artery disease status post sten (Chronic) Hyperlipidemia (Chronic) Type 2 diabetes mellitus (Chronic) Allergies Penicillins [PCN] Allergy (Verified 09/17/19 21:48) Rash Home Medications: Ambulatory Orders Medication Instructions Recorded Atorvastatin Calcium 40 mg PO DAILY 04/09/18 Canagliflozin [Invokana] 300 mg PO DAILY 04/09/18 Carvedilol 6.25 mg PO BID 04/09/18 Insulin Glargine,Hum.rec.anlog 70 unit SQ QHS 04/09/18 [Lantus] Lisinopril [Zestril] 10 mg PO DAILY 04/09/18 Sitagliptin Phos/Metformin HCl 1 tab PO DAILY 04/09/18 [Janumet Xr 100-1,000 mg Tablet] Aspirin 81 mg PO DAILY 09/18/19 Prasugrel HCl [Effient] 10 mg PO DAILY 09/18/19 Surgical History: no surgical history Psychiatric History: No pertinent psych hx Lives: Alone Smoking Status: Current every day smoker Tobacco Use: Cigarettes Alcohol: None Drugs: None - *Family History Maternal History Items: No pertinent history Paternal History Items: No pertinent history Review of Systems Unable to obtain accurate/complete ROS d/t: See HPI Patient Problems: Active and Suspected Problems Meningitis versus encephalitis (Suspected) Acute encephalopathy (Acute) Septic shock (Acute) Objective: All imaging was personally reviewed. Agree with formal interpretation. - Physical Exam Vitals/I&O's: Vital Signs Temp Pulse Resp BP Pulse Ox 37.9 C H 69 26 H 129/66 H 91 09/18/19 04:00 09/18/19 07:00 09/18/19 07:00 09/18/19 07:00 09/18/19 07:00 Oxygen Flow Rate (L/min) 2 Oxygen Delivery Method Room Air Weight: 90.9 kg Body Mass Index (BMI) 29.7 Intake and Output for Last 24 Hours 09/16/19 09/17/19 09/18/19 23:59 23:59 23:59 Intake Total 1000 / 1000 2627.75 / 2627.75 Output Total 500 / 500 Balance 1000 / 1000 2127.75 / 2127.75 General: Alert, Oriented x3, Cooperative, No apparent distress, - - Slow to respond to questions. Appears stated age. HEENT: Atraumatic, PERRLA, EOMI, Normocephalic, - - No scleral icterus or injection noted. Oral: Moist Mucosa, No Gingival or Mucosal Lesions/ Ulcerations Neck: Supple, No JVD, No Nodes, Trachea Midline, - - No meningismus. No pain on palpation of the paraspinal musculature. Lungs: Clear to auscultation, Normal air movement, No rhonchi, No wheeze, No rales Cardiovascular: Regular rate, Regular Rhythm, Normal S1, Normal S2, No murmurs, No rub noted, No Gallop Abdomen: Bowel Sounds Present, Soft, Non Tender, Non-Distended Extremities: No clubbing, No cyanosis, No edema Skin: No rashes, No breakdown, - - No tics appreciated. No petechiae or purpura appreciated. Musculoskeletal: No Tenderness to Palpation of Joints or Extremities Lymphatic: No Cervical, Supraclavicular, or Inguinal Adenopathy Neurological: Cranial nerves II-XII grossly intact, Neuro grossly intact, Motor Exam 5/5 strength throughout, - - Difficulty in conversation with word finding Psych/Mental Status: Appropriate, Flat Affect Microbiology Past 72 Hours 09/17/19 23:35 Csf, Spinal Fluid Gram Stain - Preliminary 09/17/19 23:02 Mucosa - Nasopharyngeal Influenza Types A,B Direct FA (RISSA) - Final Laboratory Results 09/17/19 21:50: WBC 13.4 H, RBC 4.35 L, Hgb 15.1, Hct 42.9, MCV 98.6 H, MCH 34.7 H, MCHC 35.2, RDW Std Deviation 43.9, RDW Coeff of Abhi 12.0, Plt Count 160, MPV 10.8, Immature Gran % (Auto) 0.300, Neut % (Auto) 70.6 H, Lymph % (Auto) 17.9 L , [place] % (Auto) 10.8 H, Eos % (Auto) 0.1, Baso % (Auto) 0.3, Absolute Neuts (auto) 9.5 H, Absolute Lymphs (auto) 2.40, Nucleated RBC % 0 09/17/19 21:50: Sodium 131 L, Potassium 3.7, Chloride 94 L, Carbon Dioxide 26.0, Anion Gap 11, BUN 15, Creatinine 1.09, Estim Creat Clear Calc 82.88, Est GFR (MDRD) Af Amer 93, Est GFR (MDRD) Non-Af 77, BUN/Creatinine Ratio 13.8, Glucose 255 H, Calcium 8.5, Troponin I < 0.015 09/17/19 21:50: Lactic Acid 5.0 H* 09/17/19 21:50: Ethyl Alcohol < 3.0 09/17/19 22:10: Urine Color Yellow, Urine Clarity Clear, Urine pH 5.0, Ur Specific [place] 1.010, Urine Protein Negative, Urine Glucose (UA) 1000 H, Urine Ketones 5 H, Urine Occult Blood Negative, Urine Nitrite Negative, Urine Bilirubin Negative, Urine Urobilinogen Normal, Ur Leukocyte Esterase Negative, Urine RBC 0 SEEN, Urine WBC 0 SEEN, Ur Squamous Epith Cells 0 SEEN, Urine B acteria 0 SEEN, Urine Mucus 0 SEEN 09/17/19 22:10: Urine Opiates Screen NEGATIVE, Urine Methadone Screen NEGATIVE, Ur Barbiturates Screen NEGATIVE, Ur Phencyclidine Scrn NEGATIVE, Ur Amphetamines Screen NEGATIVE, U Methamphetamin-MDMA NEGATIVE, U Benzodiazepines Scrn NEGATIVE, Urine Cocaine Screen NEGATIVE, U Cannabinoids Screen NEGATIVE, Ur Drug Screen Comment 09/17/19 22:35: VBG Carboxyhemoglobin 6.3 H 09/17/19 23:16: Ammonia 29.0 09/17/19 23:35: HSV I DNA PCR Cancelled, HSV II DNA PCR Cancelled 09/17/19 23:35: CSF VZV DNA (PCR) Pending, Enterovirus RNA (PCR) Pending, HSV I DNA PCR Pending, HSV II DNA PCR Pending 09/17/19 23:35: CSF Glucose 137 H 09/17/19 23:35: CSF Total Protein 46.0 H 09/17/19 23:35: Fld Polynuclear WBCs # 0.001, Fld Polynuclear WBCs % 4.7, Fluid Mononuclear WBCs 0.020, Fld Mononuclear WBCs % 95.3, CSF Appearance CLEAR, CSF Color COLORLESS, CSF WBC 0.021 H, CSF RBC 1 H, CSF Cell Count Tube # 1, CSF Total Cell Counted 0.021, CSF Comment May follow 09/18/19 02:55: Total Bilirubin 0.50, Direct Bilirubin 0.16, AST 23, ALT 30, Alkaline Phosphatase 68, Total Protein 5.9 L, Albumin 3.1 L, Globulin 2.8 09/18/19 02:55: Hemoglobin A1c Pending 09/18/19 02:55: WBC 11.9 H, RBC 4.08 L, Hgb 14.1, Hct 40.5, MCV 99.3 H, MCH 34.6 H, MCHC 34.8, RDW Std Deviation 44.1 H, RDW Coeff of Abhi 12.1, Plt Count 127 L, MPV 10.2, Immature Gran % (Auto) 0.600, Neut % (Auto) 74.6 H, Lymph % (Auto) 15.6 L, [place] % (Auto) 8.9, Eos % (Auto) 0.0, Baso % (Auto) 0.3, Absolute Neuts (auto) 8.9 H, Absolute Lymphs (auto) 1.85, Nucleated RBC % 0 09/18/19 02:55: Sodium 133 L, Potassium 4.0, Chloride 100, Carbon Dioxide 29.0, Anion Gap 4 L, BUN 12, Creatinine 0.82, Estim Creat Clear Calc 106.59, Est GFR (MDRD) Af Amer 130, Est GFR (MDRD) Non-Af 107, BUN/Creatinine Ratio 14.7, Glucose 195 H, Calcium 7.0 L 09/18/19 02:55: Lactic Acid 1.4 09/18/19 05:14: POC Glucose 171 H Current Medications Acetaminophen (Tylenol) 650 mg PO Q6H PRN PRN PRN Reason: Pain Score 1-10/Temp > 100.7 F Aspirin ([facility], Baby) [facility] Last Admin: 09/18/19 07:48 Dose: 81 mg Documented by: Atorvastatin Calcium (Lipitor) 40 mg PO QHS [facility] Carvedilol (Coreg) [facility] Last Admin: 09/18/19 07:48 Dose: 6.25 mg Documented by: Empagliflozin (Jardiance) 25 mg PO DAILY [facility] Last Admin: 09/18/19 07:49 Dose: 25 mg Documented by: Enoxaparin Sodium (Lovenox) 40 mg SC DAILY [facility] Last Admin: 09/18/19 07:49 Dose: 40 mg Documented by: Glucagon () 1 mg IM .X1 PRN PRN Reason: Hypoglycemia Sodium Chloride () 1,000 mls @ 100 mls/hr IV .Q10H [facility] Last Admin: 09/18/19 02:01 Dose: 100 mls/hr Documented by: Famotidine 20 mg/ Sodium (Chloride) 10 mls @ 300 mls/hr IV Q12 [facility] Last Admin: 09/18/19 07:48 Dose: 300 mls/hr Documented by: Ceftriaxone Sodium 2 gm/ (Sodium Chloride) 50 mls @ 100 mls/hr IV Q24@2200 ANGIE Vancomycin IV Pharmacy to Dose (1,000 ea/ Sodium Chloride) 250 mls @ 250 mls/hr IV PRN PRN Dextrose (Dextrose 10%-Water) 250 mls @ 999 mls/hr IV .Q16M PRN; Protocol PRN Reason: HYPOGLYCEMIA Sodium Chloride () 250 mls @ 15 mls/hr IV .[id number] PRN PRN Reason: Saline Flush Sodium Chloride () 250 mls @ 15 mls/hr IV .[id number] PRN PRN Reason: Additional IVPB Infusion Acyclovir Sodium 600 mg/ (Dextrose) 262 mls @ 262 mls/hr IV Q8 ANGIE Last Infusion: 09/18/19 06:18 Dose: Infused Documented by: Vancomycin HCl 1,500 mg/ (Sodium Chloride) 530 mls @ 250 mls/hr IV Q12H ANGIE Insulin Human Lispro (Humalog Kwikpen (Bkc)) 0 unit SC Q6 ANGIE; Protocol Last Admin: 09/18/19 05:18 Dose: 1 u Documented by: Lisinopril (Zestril) 10 mg PO DAILY [facility] Last Admin: 09/18/19 07:48 Dose: 10 mg Documented by: Ondansetron HCl (Zofran) 4 mg IV Q8H PRN PRN PRN Reason: NAUSEA/VOMITING Prasugrel (Effient) 10 mg PO DAILY [facility] Last Admin: 09/18/19 07:49 Dose: 10 mg Documented by: Sodium Chloride () 10 - 40 ml IV UD PRN PRN Reason: SALINE FLUSH Clinical Impression(s) from Imaging Studies Brain CT 09/17/19 22:00 IMPRESSION: Normal. ASPECT 10. Individualized dose optimization techniques were used for this CT. at 3385 Reported and signed by: Mazin Kennedy MD Electronically Signed: Mazin Kennedy MD at 22:57 EST Tel , Service support , Chest X-Ray 09/17/19 22:01 IMPRESSION: Normal. at 2221 Reported and signed by: Mazin Kennedy MD Electronically Signed: Mazin Kennedy MD at 22:20 EST Tel , Service support , Assessment/Plan Active and Suspected Problems Meningitis versus encephalitis (Suspected) Acute encephalopathy (Acute) Septic shock (Acute) RECOMMENDATIONS: 1. Extensive skin examination for tick bites 2. Continue empiric antibiotics pending LP results 3. Consider neurology consultation 4. Obtain MRI 5. Okay to leave the intensive care unit from my perspective IMPRESSIONS: 1. Sepsis of unclear source Patient's LP is not suggestive of meningitis or encephalitis at this time. Patient does not have any meningismus. Patient does have some subtle issues with word finding. No seizure activity has been noted. Will obtain an MRI/MRA for evaluation of possible stroke as patient does have a history of coronary artery disease requiring stents despite young age. Will need to do an extensive skin examination for possible tics as this is in the differential. [place] Would defer to hospitalist on obtaining a neurology consultation, but current examination is relatively nonfocal except for expressive aphasia/word finding. 2. Coronary artery disease/obesity/poor history/type 2 diabetes mellitus/hyperlipidemia Complicates care, management, recovery and prognosis. Okay to continue baseline medications from my perspective. Patient may require sliding scale insulin secondary to increased cortisol response with acute infection Code Visit Inpatient E&M: 10612 Init Hosp L3
[2019-09-18] MEDS: Acetaminophen 325 MG Tablet 650 MG PO ×3 (07:58→21:22)
[2019-09-18 08:09] LABS: Hemoglobin A1c 8.7 % (4.2-6.3)
--- NOTE | 2019-09-18 08:32 | PCM.PN.HOSP ---
Patient Problems: Active and Suspected Problems Meningitis versus encephalitis (Suspected) Acute encephalopathy (Acute) Septic shock (Acute) Reason for Visit: septic shock Subjective: Feels better. Had been ill for days with temp of 104 F. Vitals/I&O's: Vital Signs Temp Pulse Resp BP Pulse Ox 37.9 C H 69 26 H 129/66 H 93 09/18/19 04:00 09/18/19 07:00 09/18/19 07:00 09/18/19 07:00 09/18/19 08:03 Oxygen Flow Rate (L/min) 2 Oxygen Delivery Method Room Air Weight: 90.9 kg Body Mass Index (BMI) 29.7 Intake and Output for Last 24 Hours 09/16/19 09/17/19 09/18/19 23:59 23:59 23:59 Intake Total 1000 / 1000 2637.75 / 2637.75 Output Total 500 / 500 Balance 1000 / 1000 2137.75 / 2137.75 General: Alert, Oriented x3 - Patient did not know the name of the hospital but stated that he is not from this area originally., No apparent distress HEENT: Atraumatic, PERRLA, EOMI, Normocephalic Oral: Moist Mucosa, No Gingival or Mucosal Lesions/ Ulcerations Neck: No Nodes, Trachea Midline Lungs: Clear to auscultation, Normal air movement, No rhonchi, No wheeze, No rales Cardiovascular: Regular rate, Regular Rhythm, Normal S1, Normal S2, No murmurs Abdomen: Bowel Sounds Present, Soft, Non Tender, Non-Distended, No Hepato-splenomegaly Extremities: No edema, No Calf Tenderness Skin: No rashes, No breakdown Musculoskeletal: No Tenderness to Palpation of Joints or Extremities, No Muscle Wasting Neurological: Cranial nerves II-XII grossly intact, Neuro grossly intact, Motor Exam 5/5 strength throughout, Coordination normal, - - Negative Kernig's and Brudzinski sign Psych/Mental Status: Normal Affect, Appropriate Microbiology Past 72 Hours 09/17/19 23:35 Csf, Spinal Fluid Gram Stain - Preliminary 09/17/19 23:02 Mucosa - Nasopharyngeal Influenza Types A,B Direct FA (RISSA) - Final Laboratory Results 09/17/19 21:50: WBC 13.4 H, RBC 4.35 L, Hgb 15.1, Hct 42.9, MCV 98.6 H, MCH 34.7 H, MCHC 35.2, RDW Std Deviation 43.9, RDW Coeff of Abhi 12.0, Plt Count 160, MPV 10.8, Immature Gran % (Auto) 0.300, Neut % (Auto) 70.6 H, Lymph % (Auto) 17.9 L, [place] % (Auto) 10.8 H, Eos % (Auto) 0.1, Baso % (Auto) 0.3, Absolute Neuts (auto) 9.5 H, Absolute Lymphs (auto) 2.40, Nucleated RBC % 0 09/17/19 21:50: Sodium 131 L, Potassium 3.7, Chloride 94 L, Carbon Dioxide 26.0, Anion Gap 11, BUN 15, Creatinine 1.09, Estim Creat Clear Calc 82.88, Est GFR (MDRD) Af Amer 93, Est GFR (MDRD) Non-Af 77, BUN/Creatinine Ratio 13.8, Glucose 255 H, Calcium 8.5, Troponin I < 0.015 09/17/19 21:50: Lactic Acid 5.0 H* 09/17/19 21:50: Ethyl Alcohol < 3.0 09/17/19 22:10: Urine Color Yellow, Urine Clarity Clear, Urine pH 5.0, Ur Specific [place] 1.010, Urine Protein Negative, Urine Glucose (UA) 1000 H, Urine Ketones 5 H, Urine Occult Blood Negative, Urine Nitrite Negative, Urine Bilirubin Negative, Urine Urobilinogen Normal, Ur Leukocyte Esterase Negative, Urine RBC 0 SEEN, Urine WBC 0 SEEN, Ur Squamous Epith Cells 0 SEEN, Urine Bacteria 0 SEEN, Urine Mucus 0 SEEN 09/17/19 22:10: Urine Opiates Screen NEGATIVE, Urine Methadone Screen NEGATIVE, Ur Barbiturates Screen NEGATIVE, Ur Phencyclidine Scrn NEGATIVE, Ur Amphetamines Screen NEGATIVE, U Methamphetamin-MDMA NEGATIVE, U Benzodiazepines Scrn NEGATIVE, Urine Cocaine Screen NEGATIVE, U Cannabinoids Screen NEGATIVE, Ur Drug Screen Comment 09/17/19 22:35: VBG Carboxyhemoglobin 6.3 H 09/17/19 23:16: Ammonia 29.0 09/17/19 23:35: HSV I DNA PCR Cancelled, HSV II DNA PCR Cancelled 09/17/19 23:35: CSF VZV DNA (PCR) Pending, Enterovirus RNA (PCR) Pending, HSV I DNA PCR Pending, HSV II DNA PCR Pending 09/17/19 23:35: CSF Glucose 137 H 09/17/19 23:35: CSF Total Protein 46.0 H 09/17/19 23:35: Fld Polynuclear WBCs # 0.001, Fld Polynuclear WBCs % 4.7, Fluid Mononuclear WBCs 0.020, Fld Mononuclear WBCs % 95.3, CSF Appearance CLEAR, CSF Color COLORLESS, CSF WBC 0.021 H, CSF RBC 1 H, CSF Cell Count Tube # 1, CSF Total Cell Counted 0.021, CSF Comment May follow 09/18/19 02:55: Total Bilirubin 0.50, Direct Bilirubin 0.16, AST 23, ALT 30, Alkaline Phosphatase 68, Total Protein 5.9 L, Albumin 3.1 L, Globulin 2.8 09/18/19 02:55: Hemoglobin A1c 8.7 H 09/18/19 02:55: WBC 11.9 H, RBC 4.08 L, Hgb 14.1, Hct 40.5, MCV 99.3 H, MCH 34.6 H, MCHC 34.8, RDW Std Deviation 44.1 H, RDW Coeff of Abhi 12.1, Plt Count 127 L, MPV 10.2, Immature Gran % (Auto) 0.600, Neut % (Auto) 74.6 H, Lymph % (Auto) 15.6 L, [place] % (Auto) 8.9, Eos % (Auto) 0.0, Baso % (Auto) 0.3, Absolute Neuts (auto) 8.9 H, Absolute Lymphs (auto) 1.85, Nucleated RBC % 0 09/18/19 02:55: Sodium 133 L, Potassium 4.0, Chloride 100, Carbon Dioxide 29.0, Anion Gap 4 L, BUN 12, Creatinine 0.82, Estim Creat Clear Calc 106.59, Est GFR (MDRD) Af Amer 130, Est GFR (MDRD) Non-Af 107, BUN/Creatinine Ratio 14.7, Glucose 195 H, Calcium 7.0 L 09/18/19 02:55: Lactic Acid 1.4 09/18/19 05:14: POC Glucose 171 H Current Medications Acetaminophen (Tylenol) 650 mg PO Q6H PRN PRN PRN Reason: Pain Score 1-10/Temp > 100.7 F Last Admin: 09/18/19 07:58 Dose: 650 mg Documented by: Aspir[facility] ([facility], [facility]) [facility] Last Admin: 09/18/19 07:48 Dose: 81 mg Documented by: Atorvastatin Calcium (Lipitor) 40 mg PO QHS [facility] Carvedilol (Coreg) 6.25 mg PO BIDCM [facility] Last Admin: 09/18/19 07:48 Dose: 6.25 mg Documented by: Empagliflozin (Jardiance) 25 mg PO DAILY [facility] Last Admin: 09/18/19 07:49 Dose: 25 mg Documented by: Enoxaparin Sodium (Lovenox) 40 mg SC DAILY [facility] Last Admin: 09/18/19 07:49 Dose: 40 mg Documented by: Glucagon () 1 mg IM .X1 PRN PRN Reason: Hypoglycemia Sodium Chloride () 1,000 mls @ 100 mls/hr IV .Q10H [facility] Last Admin: 09/18/19 02:01 Dose: 100 mls/hr Documented by: Famotidine 20 mg/ Sodium (Chloride) 10 mls @ 300 mls/hr IV Q12 [facility] Last Infusion: 09/18/19 07:50 Dose: Infused Documented by: Ceftriaxone Sodium 2 gm/ (Sodium Chloride) 50 mls @ 100 mls/hr IV Q24@2200 [facility] Vancomycin IV Pharmacy to Dose (1,000 ea/ Sodium Chloride) 250 mls @ 250 mls/hr IV PRN PRN Dextrose (Dextrose 10%-Water) 250 mls @ 999 mls/hr IV .Q16M PRN; Protocol PRN Reason: HYPOGLYCEMIA Sodium Chloride () 250 mls @ 15 mls/hr IV .[id number] PRN PRN Reason: Saline Flush Sodium Chloride () 250 mls @ 15 mls/hr IV .[id number] PRN PRN Reason: Additional IVPB Infusion Acyclovir Sodium 600 mg/ (Dextrose) 262 mls @ 262 mls/hr IV Q8 [facility] Last Infusion: 09/18/19 06:18 Dose: Infused Documented by: Vancomycin HCl 1,500 mg/ (Sodium Chloride) 530 mls @ 250 mls/hr IV Q12H [facility] Insulin Human Lispro (Humalog Kwlisapen (Bkc)) 0 unit SC Q6 [facility]; Protocol Last Admin: 09/18/19 05:18 Dose: 1 u Documented by: Lisinopril (Zestril) 10 mg PO DAILY [facility] Last Admin: 09/18/19 07:48 Dose: 10 mg Documented by: Ondansetron HCl (Zofran) 4 mg IV Q8H PRN PRN PRN Reason: NAUSEA/VOMITING Prasugrel (Effient) 10 mg PO DAILY [facility] Last Admin: 09/18/19 07:49 Dose: 10 mg Documented by: Sodium Chloride () 10 - 40 ml IV UD PRN PRN Reason: SALINE FLUSH STROKE Vital Signs/Narrative: Vital Signs Pulse Resp BP Pulse Ox 09/18/19 08:03 93 09/18/19 07:00 69 26 H 129/66 H 91 09/18/19 06:00 70 27 H 133/74 H 96 09/18/19 05:00 69 24 H 144/83 H 93 Medical Necessity - Tobacco Use Smoking Status: Current every day smoker Tobacco Use: Cigarettes Assessment/Plan All Active Problems Acute encephalopathy (Acute) Septic shock (Acute) 1. septic shock POA with WBC of 13.4k, tachypnea and lactic acidosis of 5 improved at this time. was not hypotensive 2/2 the underlying infection UA negative BCx pending as well as LP studies CXR negative for infiltrate 2. possible meningitis/encephalitis spinal fluid with elevated WBCs of 0.021, glucose 137 and protein 46 VZV, enterovirtus, HSV titers pending. on acyclovir, CTX and vanc no clinical signs/sx at this time 3. encephalopathy resolved 2/2 underling illness tox screen negative 4. DM2 high and uncontrolled A1c 8.5 metformin held given lactic acidosis resume glargine, continue SSI continue Jardiance monitor for now before making adjustments to home regimen 5. VTE prophylaxis: mod risk. LMWH 6. Disposition: to PCU. Further hospitalization to be determined by response and Cx results. Code Visit Inpatient E&M: 68694 Subs Hosp L3
--- NOTE | 2019-09-18 09:34 | CM.UR ---
Interdisciplinary rounds performed. Patient's mother and step-father present at bedside. Patient alert. Remains with a fever. Still unknown source of infection. Will continue to treat with antibiotics until cultures come back. Kiesha Shelton RN, CCM.
--- NOTE | 2019-09-18 09:38 | CM.UR ---
RN CM Assessment Introduced role of RN CM to patient. Patient is alert and able to participate in RN CM Assessment. Care providers, pharmacy, and demographics verified. Mother and step-father at bedside. Presentation: Altered Mental status Admit Dx: Septic Shock Re-Admit: No Barriers/Issues: ? mental status, able to retain learning at this time. Usually no barriers. PCP: Dr. Leonardo Specialists: Denies. Hx of CAD but not seeing can piler. Preferred Pharmacy: [facility] Insurance: MMO Rx Benefit: Yes LNOK: Mother LW/HPOA: declines Living Arrangements: alone in mobile home with 3 steps to enter. ADL?s: Usually independent Transportation: self. DME: None DME co: no preference HHC: None SNF: States doesn't remember name but was in one in [place] after [place] Goal: return home independently. DC PLAN: Home, NN anticipated however CM will continue to following for any needs that may arise. Kiesha Shelton RN, CCM.
--- NOTE | 2019-09-18 10:58 | MRI_ITS ---
STUDY: MRI BRAIN WITH AND WITHOUT CONTRAST REASON FOR EXAM: Male, 48 years old. cva, encephalitis, H/A, FEVER,CONFUSION TECHNIQUE: Standardized multiplanar fat and water weighted pulse sequences were obtained. DOTAREM IV 18ML was administered for the contrast portion of the examination. COMPARISON: CT of the brain September 17, 2019. FINDINGS: Normal size of the ventricles and extra-axial spaces for the patient''s age. Diffusely increased nonspecific gliosis of the right medial and perisylvian region of the temporal lobe which exhibits restricted diffusion. There is also restricted diffusion in the lateral left temporal lobe. There is a small subdural effusion in left parietal region with enhancing membrane. Normal bilateral basal ganglia. Normal thalami. There is no extra-axial fluid accumulation. Normal flow voids within the major intracranial circulation suggesting patency by spin echo criteria. Normal venous enhancement. There is no enhancing intra-axial or extra-axial abnormality. Normal sella turcica, pituitary gland, infundibular stalk, optic chiasm and hypothalamus. Normal tectal plate and pineal gland. Normal midbrain, kiara and medulla. Normal cerebellum. Normal basal cisterns. Normal bilateral temporal bones. Normal bilateral internal auditory canals. No demonstrated orbital abnormality, within the constraints of a routine brain study. Large mucous retention cyst in right maxillary sinus and minor mucosal thickening in left maxillary sinus. There is also minor mucosal thickening of the ethmoid air cells and a small polyp or mucous retention cyst in the sphenoid sinus. Normal calvarium and skull base. Normal visualized soft tissue structures. Normal visualized upper cervical spine. MRI/Brain W/WO Contrast IMPRESSION: Nonspecific gliosis within the right temporal lobe and to a lesser extent the left temporal lobe which may be consistent with clinical history of encephalitis. There is also a very small left subdural effusion with enhancing membrane which may be consistent with small empyema. Clinical correlation is recommended Clinical correlation recommended Electronically Signed: All Flores MD at 17:37 EST , Service support ,
[2019-09-18 11:50] LABS: Bedside Glucose 100 mg/dL (70-110)
[2019-09-18 16:50] LABS: Bedside Glucose 195 mg/dL (70-110)
[2019-09-18] MEDS: Atorvastatin Calcium 40 MG Tablet PO (21:20)
[2019-09-18 21:21] LABS: Bedside Glucose 183 mg/dL (70-110)
[2019-09-18] MEDS: 0.9% Saline Lock 10 ML Syringe IV (21:23)
[2019-09-18 23:56] LABS: Bedside Glucose 149 mg/dL (70-110)
[2019-09-19] VITALS (8 sets, daily range): BP systolic 131–149; BP diastolic 63–83; PULSE 55–79; RESP 16–18; TEMP 37–38.8; O2SAT 96–98
[2019-09-19] MEDS: 0.9% Saline Lock 10 ML Syringe IV ×2 (03:00→21:41)
[2019-09-19] MEDS: 0.9% Normal Saline 1,000 ML 100 ML IV ×2 (03:01→15:58)
[2019-09-19] MEDS: Acetaminophen 325 MG Tablet 650 MG PO ×2 (03:26→16:11)
[2019-09-19 05:56] LABS: Bedside Glucose 131 mg/dL (70-110)
--- NOTE | 2019-09-19 08:13 | PN_ITS ---
Subjective: Patient did okay hemodynamically overnight. Patient did have some bradycardia and high fevers noted. Patient remains on room air. Patient states he feels subjectively improved compared to yesterday, but was relatively resistant to questioning as I had to wake him up on my evaluation. No seizure activity has been reported by nursing. General: Alert, Oriented x3, Cooperative - Intermittently, No apparent distress, - - No conversational dyspnea. HEENT: Atraumatic, PERRLA, EOMI, Normocephalic, - - Slight scleral injection without icterus Oral: Moist Mucosa, No Gingival or Mucosal Lesions/ Ulcerations Neck: Supple, No JVD, No Nodes, Trachea Midline Lungs: Clear to auscultation, Normal air movement, No rhonchi, No wheeze, No rales, - - Symmetric expansion. No dullness to percussion. Cardiovascular: Regular Rhythm, Normal S1, Normal S2, No murmurs, Bradycardic, No rub noted, No Gallop Abdomen: Bowel Sounds Present, Soft, Non Tender, Non-Distended Extremities: No clubbing, No cyanosis, No edema, Capillary Refill Less than 3 Seconds Skin: - - Erythema noted of the head and neck without obvious papules Musculoskeletal: No Tenderness to Palpation of Joints or Extremities Lymphatic: No Cervical, Supraclavicular, or Inguinal Adenopathy Neurological: Cranial nerves II-XII grossly intact, Neuro grossly intact, Motor Exam 5/5 strength throughout Psych/Mental Status: Appropriate, Flat Affect Vital Signs Temp Pulse Resp BP Pulse Ox 38.8 C H 55 L 16 141/63 H 98 09/19/19 03:00 09/19/19 07:29 09/19/19 03:00 09/19/19 03:00 09/19/19 03:00 Oxygen Flow Rate (L/min) 2 Oxygen Delivery Method Room Air Weight: 90.7 kg Body Mass Index (BMI) 29.7 Intake and Output for Last 24 Hours 09/17/19 09/18/19 09/19/19 23:59 23:59 23:59 Intake Total 1000 / 1000 6046.75 / 6678.75 2412.33 / 2412.33 Output Total 1100 / 1100 Balance 1000 / 1000 4946.75 / 5578.75 2412.33 / 2412.33 Labs (Last 48 Hours) 09/17/19 09/17/19 09/17/19 21:50 21:50 21:50 WBC 13.4 H RBC 4.35 L Hgb 15.1 Hct 42.9 MCV 98.6 H MCH 34.7 H MCHC 35.2 RDW Std Deviation 43.9 RDW Coeff of Abhi 12.0 Plt Count 160 MPV 10.8 Immature Gran % (Auto) 0.300 Neut % (Auto) 70.6 H Lymph % (Auto) 17.9 L [place] % (Auto) 10.8 H Eos % (Auto) 0.1 Baso % (Auto) 0.3 Absolute Neuts (auto) 9.5 H Absolute Lymphs (auto) 2.40 Nucleated RBC % 0 VBG Carboxyhemoglobin Sodium 131 L Potassium 3.7 Chloride 94 L Carbon Dioxide 26.0 Anion Gap 11 BUN 15 Creatinine 1.09 Estim Creat Clear Calc 82.88 Est GFR (MDRD) Af Amer 93 Est GFR (MDRD) Non-Af 77 BUN/Creatinine Ratio 13.8 Glucose 255 H Hemoglobin A1c Lactic Acid 5.0 H* Calcium 8.5 Total Bilirubin Direct Bilirubin AST ALT Alkaline Phosphatase Ammonia Troponin I < 0.015 Total Protein Albumin Globulin Urine Color Urine Clarity Urine pH Ur Specific [place] Urine Protein Urine Glucose (UA) Urine Ketones Urine Occult Blood Urine Nitrite Urine Bilirubin Urine Urobilinogen Ur Leukocyte Esterase Urine RBC Urine WBC Ur Squamous Epith Cells Urine Bacteria Urine Mucus Fld Polynuclear WBCs # Fld Polynuclear WBCs % Fluid Mononuclear WBCs Fld Mononuclear WBCs % CSF Appearance CSF Color CSF WBC CSF RBC CSF Cell Count Tube # CSF Total Cell Counted CSF Comment CSF Glucose CSF Total Protein CSF VZV DNA (PCR) Urine Opiates Screen Urine Methadone Screen Ur Barbiturates Screen Ur Phencyclidine Scrn Ur Amphetamines Screen U Methamphetamin-MDMA U Benzodiazepines Scrn Urine Cocaine Screen U Cannabinoids Screen Ur Drug Screen Comment Ethyl Alcohol Enterovirus RNA (PCR) HSV I DNA PCR HSV II DNA PCR POC Glucose 09/17/19 09/17/19 09/17/19 21:50 22:10 22:10 WBC RBC Hgb Hct MCV MCH MCHC RDW Std Deviation RDW Coeff of Abhi Plt Count MPV Immature Gran % (Auto) Neut % (Auto) Lymph % (Auto) [place] % (Auto) Eos % (Auto) Baso % (Auto) Absolute Neuts (auto) Absolute Lymphs (auto) Nucleated RBC % VBG Carboxyhemoglobin Sodium Potassium Chloride Carbon Dioxide Anion Gap BUN Creatinine Estim Creat Clear Calc Est GFR (MDRD) Af Amer Est GFR (MDRD) Non-Af BUN/Creatinine Ratio Glucose Hemoglobin A1c Lactic Acid Calcium Total Bilirubin Direct Bilirubin AST ALT Alkaline Phosphatase Ammonia Troponin I Total Protein Albumin Globulin Urine Color Yellow Urine Clarity Clear Urine pH 5.0 Ur Specific [place] 1.010 Urine Protein Negative Urine Glucose (UA) 1000 H Urine Ketones 5 H Urine Occult Blood Negative Urine Nitrite Negative Urine Bilirubin Negative Urine Urobilinogen Normal Ur Leukocyte Esterase Negative Urine RBC 0 SEEN Urine WBC 0 SEEN Ur Squamous Epith Cells 0 SEEN Urine Bacteria 0 SEEN Urine Mucus 0 SEEN Fld Polynuclear WBCs # Fld Polynuclear WBCs % Fluid Mononuclear WBCs Fld Mononuclear WBCs % CSF Appearance CSF Color CSF WBC CSF RBC CSF Cell Count Tube # CSF Total Cell Counted CSF Comment CSF Glucose CSF Total Protein CSF VZV DNA (PCR) Urine Opiates Screen NEGATIVE Urine Methadone Screen NEGATIVE Ur Barbiturates Screen NEGATIVE Ur Phencyclidine Scrn NEGATIVE Ur Amphetamines Screen NEGATIVE U Methamphetamin-MDMA NEGATIVE U Benzodiazepines Scrn NEGATIVE Urine Cocaine Screen NEGATIVE U Cannabinoids Screen NEGATIVE Ur Drug Screen Comment Ethyl Alcohol < 3.0 Enterovirus RNA (PCR) HSV I DNA PCR HSV II DNA PCR POC Glucose 09/17/19 09/17/19 09/17/19 22:35 23:16 23:35 WBC RBC Hgb Hct MCV MCH MCHC RDW Std Deviation RDW Coeff of Abhi Plt Count MPV Immature Gran % (Auto) Neut % (Auto) Lymph % (Auto) [place] % (Auto) Eos % (Auto) Baso % (Auto) Absolute Neuts (auto) Absolute Lymphs (auto) Nucleated RBC % VBG Carboxyhemoglobin 6.3 H Sodium Potassium Chloride Carbon Dioxide Anion Gap BUN Creatinine Estim Creat Clear Calc Est GFR (MDRD) Af Amer Est GFR (MDRD) Non-Af BUN/Creatinine Ratio Glucose Hemoglobin A1c Lactic Acid Calcium Total Bilirubin Direct Bilirubin AST ALT Alkaline Phosphatase Ammonia 29.0 Troponin I Total Protein Albumin Globulin Urine Color Urine Clarity Urine pH Ur Specific [place] Urine Protein Urine Glucose (UA) Urine Ketones Urine Occult Blood Urine Nitrite Urine Bilirubin Urine Urobilinogen Ur Leukocyte Esterase Urine RBC Urine WBC Ur Squamous Epith Cells Urine Bacteria Urine Mucus Fld Polynuclear WBCs # Fld Polynuclear WBCs % Fluid Mononuclear WBCs Fld Mononuclear WBCs % CSF Appearance CSF Color CSF WBC CSF RBC CSF Cell Count Tube # CSF Total Cell Counted CSF Comment CSF Glucose CSF Total Protein CSF VZV DNA (PCR) Urine Opiates Screen Urine Methadone Screen Ur Barbiturates Screen Ur Phencyclidine Scrn Ur Amphetamines Screen U Methamphetamin-MDMA U Benzodiazepines Scrn Urine Cocaine Screen U Cannabinoids Screen Ur Drug Screen Comment Ethyl Alcohol Enterovirus RNA (PCR) HSV I DNA PCR Cancelled HSV II DNA PCR Cancelled POC Glucose 09/17/19 09/17/19 09/17/19 23:35 23:35 23:35 WBC RBC Hgb Hct MCV MCH MCHC RDW Std Deviation RDW Coeff of Abhi Plt Count MPV Immature Gran % (Auto) Neut % (Auto) Lymph % (Auto) [place] % (Auto) Eos % (Auto) Baso % (Auto) Absolute Neuts (auto) Absolute Lymphs (auto) Nucleated RBC % VBG Carboxyhemoglobin Sodium Potassium Chloride Carbon Dioxide Anion Gap BUN Creatinine Estim Creat Clear Calc Est GFR (MDRD) Af Amer Est GFR (MDRD) Non-Af BUN/Creatinine Ratio Glucose Hemoglobin A1c Lactic Acid Calcium Total Bilirubin Direct Bilirubin AST ALT Alkaline Phosphatase Ammonia Troponin I Total Protein Albumin Globulin Urine Color Urine Clarity Urine pH Ur Specific [place] Urine Protein Urine Glucose (UA) Urine Ketones Urine Occult Blood Urine Nitrite Urine Bilirubin Urine Urobilinogen Ur Leukocyte Esterase Urine RBC Urine WBC Ur Squamous Epith Cells Urine Bacteria Urine Mucus Fld Polynuclear WBCs # Fld Polynuclear WBCs % Fluid Mononuclear WBCs Fld Mononuclear WBCs % CSF Appearance CSF Color CSF WBC CSF RBC CSF Cell Count Tube # CSF Total Cell Counted CSF Comment CSF Glucose 137 H CSF Total Protein 46.0 H CSF VZV DNA (PCR) Pending Urine Opiates Screen Urine Methadone Screen Ur Barbiturates Screen Ur Phencyclidine Scrn Ur Amphetamines Screen U Methamphetamin-MDMA U Benzodiazepines Scrn Urine Cocaine Screen U Cannabinoids Screen Ur Drug Screen Comment Ethyl Alcohol Enterovirus RNA (PCR) Pending HSV I DNA PCR Pending HSV II DNA PCR Pending POC Glucose 09/17/19 09/18/19 09/18/19 23:35 02:55 02:55 WBC RBC Hgb Hct MCV MCH MCHC RDW Std Deviation RDW Coeff of Abhi Plt Count MPV Immature Gran % (Auto) Neut % (Auto) Lymph % (Auto) [place] % (Auto) Eos % (Auto) Baso % (Auto) Absolute Neuts (auto) Absolute Lymphs (auto) Nucleated RBC % VBG Carboxyhemoglobin Sodium Potassium Chloride Carbon Dioxide Anion Gap BUN Creatinine Estim Creat Clear Calc Est GFR (MDRD) Af Amer Est GFR (MDRD) Non-Af BUN/Creatinine Ratio Glucose Hemoglobin A1c 8.7 H Lactic Acid Calcium Total Bilirubin 0.50 Direct Bilirubin 0.16 AST 23 ALT 30 Alkaline Phosphatase 68 Ammonia Troponin I Total Protein 5.9 L Albumin 3.1 L Globulin 2.8 Urine Color Urine Clarity Urine pH Ur Specific [place] Urine Protein Urine Glucose (UA) Urine Ketones Urine Occult Blood Urine Nitrite Urine Bilirubin Urine Urobilinogen Ur Leukocyte Esterase Urine RBC Urine WBC Ur Squamous Epith Cells Urine Bacteria Urine Mucus Fld Polynuclear WBCs # 0.001 Fld Polynuclear WBCs % 4.7 Fluid Mononuclear WBCs 0.020 Fld Mononuclear WBCs % 95.3 CSF Appearance CLEAR CSF Color COLORLESS CSF WBC 0.021 H CSF RBC 1 H CSF Cell Count Tube # 1 CSF Total Cell Counted 0.021 CSF Comment May follow CSF Glucose CSF Total Protein CSF VZV DNA (PCR) Urine Opiates Screen Urine Methadone Screen Ur Barbiturates Screen Ur Phencyclidine Scrn Ur Amphetamines Screen U Methamphetamin-MDMA U Benzodiazepines Scrn Urine Cocaine Screen U Cannabinoids Screen Ur Drug Screen Comment Ethyl Alcohol Enterovirus RNA (PCR) HSV I DNA PCR HSV II DNA PCR POC Glucose 09/18/19 09/18/19 09/18/19 02:55 02:55 02:55 WBC 11.9 H RBC 4.08 L Hgb 14.1 Hct 40.5 MCV 99.3 H MCH 34.6 H MCHC 34.8 RDW Std Deviation 44.1 H RDW Coeff of Abhi 12.1 Plt Count 127 L MPV 10.2 Immature Gran % (Auto) 0.600 Neut % (Auto) 74.6 H Lymph % (Auto) 15.6 L [place] % (Auto) 8.9 Eos % (Auto) 0.0 Baso % (Auto) 0.3 Absolute Neuts (auto) 8.9 H Absolute Lymphs (auto) 1.85 Nucleated RBC % 0 VBG Carboxyhemoglobin Sodium 133 L Potassium 4.0 Chloride 100 Carbon Dioxide 29.0 Anion Gap 4 L BUN 12 Creatinine 0.82 Estim Creat Clear Calc 106.59 Est GFR (MDRD) Af Amer 130 Est GFR (MDRD) Non-Af 107 BUN/Creatinine Ratio 14.7 Glucose 195 H Hemoglobin A1c Lactic Acid 1.4 Calcium 7.0 L Total Bilirubin Direct Bilirubin AST ALT Alkaline Phosphatase Ammonia Troponin I Total Protein Albumin Globulin Urine Color Urine Clarity Urine pH Ur Specific [place] Urine Protein Urine Glucose (UA) Urine Ketones Urine Occult Blood Urine Nitrite Urine Bilirubin Urine Urobilinogen Ur Leukocyte Esterase Urine RBC Urine WBC Ur Squamous Epith Cells Urine Bacteria Urine Mucus Fld Polynuclear WBCs # Fld Polynuclear WBCs % Fluid Mononuclear WBCs Fld Mononuclear WBCs % CSF Appearance CSF Color CSF WBC CSF RBC CSF Cell Count Tube # CSF Total Cell Counted CSF Comment CSF Glucose CSF Total Protein CSF VZV DNA (PCR) Urine Opiates Screen Urine Methadone Screen Ur Barbiturates Screen Ur Phencyclidine Scrn Ur Amphetamines Screen U Methamphetamin-MDMA U Benzodiazepines Scrn Urine Cocaine Screen U Cannabinoids Screen Ur Drug Screen Comment Ethyl Alcohol Enterovirus RNA (PCR) HSV I DNA PCR HSV II DNA PCR POC Glucose 09/18/19 09/18/19 09/18/19 05:14 11:44 16:39 WBC RBC Hgb Hct MCV MCH MCHC RDW Std Deviation RDW Coeff of Abhi Plt Count MPV Immature Gran % (Auto) Neut % (Auto) Lymph % (Auto) [place] % (Auto) Eos % (Auto) Baso % (Auto) Absolute Neuts (auto) Absolute Lymphs (auto) Nucleated RBC % VBG Carboxyhemoglobin Sodium Potassium Chloride Carbon Dioxide Anion Gap BUN Creatinine Estim Creat Clear Calc Est GFR (MDRD) Af Amer Est GFR (MDRD) Non-Af BUN/Creatinine Ratio Glucose Hemoglobin A1c Lactic Acid Calcium Total Bilirubin Direct Bilirubin AST ALT Alkaline Phosphatase Ammonia Troponin I Total Protein Albumin Globulin Urine Color Urine Clarity Urine pH Ur Specific [place] Urine Protein Urine Glucose (UA) Urine Ketones Urine Occult Blood Urine Nitrite Urine Bilirubin Urine Urobilinogen Ur Leukocyte Esterase Urine RBC Urine WBC Ur Squamous Epith Cells Urine Bacteria Urine Mucus Fld Polynuclear WBCs # Fld Polynuclear WBCs % Fluid Mononuclear WBCs Fld Mononuclear WBCs % CSF Appearance CSF Color CSF WBC CSF RBC CSF Cell Count Tube # CSF Total Cell Counted CSF Comment CSF Glucose CSF Total Protein CSF VZV DNA (PCR) Urine Opiates Screen Urine Methadone Screen Ur Barbiturates Screen Ur Phencyclidine Scrn Ur Amphetamines Screen U Methamphetamin-MDMA U Benzodiazepines Scrn Urine Cocaine Screen U Cannabinoids Screen Ur Drug Screen Comment Ethyl Alcohol Enterovirus RNA (PCR) HSV I DNA PCR HSV II DNA PCR POC Glucose 171 H 100 195 H 09/18/19 09/18/19 09/19/19 21:14 23:51 05:44 WBC RBC Hgb Hct MCV MCH MCHC RDW Std Deviation RDW Coeff of Abhi Plt Count MPV Immature Gran % (Auto) Neut % (Auto) Lymph % (Auto) [place] % (Auto) Eos % (Auto) Baso % (Auto) Absolute Neuts (auto) Absolute Lymphs (auto) Nucleated RBC % VBG Carboxyhemoglobin Sodium Potassium Chloride Carbon Dioxide Anion Gap BUN Creatinine Estim Creat Clear Calc Est GFR (MDRD) Af Amer Est GFR (MDRD) Non-Af BUN/Creatinine Ratio Glucose Hemoglobin A1c Lactic Acid Calcium Total Bilirubin Direct Bilirubin AST ALT Alkaline Phosphatase Ammonia Troponin I Total Protein Albumin Globulin Urine Color Urine Clarity Urine pH Ur Specific [place] Urine Protein Urine Glucose (UA) Urine Ketones Urine Occult Blood Urine Nitrite Urine Bilirubin Urine Urobilinogen Ur Leukocyte Esterase Urine RBC Urine WBC Ur Squamous Epith Cells Urine Bacteria Urine Mucus Fld Polynuclear WBCs # Fld Polynuclear WBCs % Fluid Mononuclear WBCs Fld Mononuclear WBCs % CSF Appearance CSF Color CSF WBC CSF RBC CSF Cell Count Tube # CSF Total Cell Counted CSF Comment CSF Glucose CSF Total Protein CSF VZV DNA (PCR) Urine Opiates Screen Urine Methadone Screen Ur Barbiturates Screen Ur Phencyclidine Scrn Ur Amphetamines Screen U Methamphetamin-MDMA U Benzodiazepines Scrn Urine Cocaine Screen U Cannabinoids Screen Ur Drug Screen Comment Ethyl Alcohol Enterovirus RNA (PCR) HSV I DNA PCR HSV II DNA PCR POC Glucose 183 H 149 H 131 H Microbiology 09/17/19 23:35 Csf, Spinal Fluid Gram Stain - Final 09/17/19 23:02 Mucosa - Nasopharyngeal Influenza Types A,B Direct FA (RISSA) - Final Clinical Impression(s) from Imaging Studies Head MRA 09/18/19 06:42 IMPRESSION: Normal MRA of the head Electronically Signed: All Flores MD at 17:38 EST , Service support , Neck MRA 09/18/19 06:42 IMPRESSION: Atherosclerotic disease without evidence for hemodynamically significant stenosis utilizing NASCET criteria Electronically Signed: All Flores MD at 17:41 EST , Service support , Brain MRI 09/18/19 10:58 IMPRESSION: Nonspecific gliosis within the right temporal lobe and to a lesser extent the left temporal lobe which may be consistent with clinical history of encephalitis. There is also a very small left subdural effusion with enhancing membrane which may be consistent with small empyema. Clinical correlation is recommended Clinical correlation recommended Electronically Signed: All Flores MD at 17:37 EST , Service support , Medical Necessity - Tobacco Use Smoking Status: Current every day smoker Tobacco Use: Cigarettes Assessment/Plan All Active Problems Acute encephalopathy (Acute) Septic shock (Acute) RECOMMENDATIONS: 1. Consider ID/neuro consult 2. Continue empiric antibiotics pending LP results 3. Consider seizure precautions 4. Hemodynamically stable on room air. Will sign off from a critical care perspective IMPRESSIONS: 1. Sepsis of unclear source Patient's LP is not suggestive of meningitis or encephalitis at this time. Patient does not have any meningismus. Patient does appear to have some edema of bilateral temporal lobes. HSV encephalitis would be a consideration. Patient is currently on acyclovir. Consider seizure precautions given temporal lobe involvement. Patient may benefit from a neurology and infectious disease consultation, but defer to primary service. Patient currently hemodynamically stable on room air. Will sign off from a critical care perspective. 2. Coronary artery disease/obesity/poor history/type 2 diabetes mellitus/hyperlipidemia Complicates care, management, recovery and prognosis. Okay to continue baseline medications from my perspective. Patient may require sliding scale insulin secondary to increased cortisol response with acute infection Code Visit Inpatient E&M: 71405 Subs Hosp L2
[2019-09-19 08:32] LABS: Absolute Lymphocyte Count 3.23 X10^3/uL (0.83-4.51); Absolute Neutrophil Count 6.2 X10^3/uL (2.0-7.7); Basophil# 0.04 X10^3/uL; Basophil% 0.4 % (0-1); Eosinophil# 0.01 X10^3/uL; Eosinophils% 0.1 % (0-5); Hematocrit 41.1 % (40-54); Hemoglobin 14.7 g/dL (13.0-16.5); Lymphocyte # 3.23 X10^3/ul (4.0); Lymphocyte % 29.6 % (19-41); Mean Corp Hgb Conc 35.8 g/dL (32-36); Mean Corpuscular Hgb 34.5 pg (27.0-32.0); Mean Corpuscular Volume 96.5 fL (80-94); Mean Platelet Vol. 10.3 fl (6.2-12.0); Monocyte# 1.37 X10^3/uL; Monocyte% 12.6 % (0-10); NRBC Flagged by Analyzer 0 % (0-5); Neutrophil # 6.22 X10^3/uL (2.7-7.7); Platelet Count 132 K/mm3 (150-450); RBC Distribution Width CV 11.9 % (11.6-14.6); RBC Distribution Width SD 42.1 fl (35.1-43.9); Red Blood Count 4.26 M/mm3 (4.6-6.2); White Blood Count 10.9 K/mm3 (4.4-11.0)
[2019-09-19 08:55] LABS: Anion Gap 5 (5-15); BUN 9 mg/dL (7-18); BUN/Creat Ratio 12.2 RATIO (10-20); Calcium,Total 7.6 mg/dL (8.5-10.1); Chloride 96 mmol/L (98-107); Creatinine, Serum 0.74 mg/dL (0.70-1.30); EST Glomerular Filtration Rate 120 mL/min (>60); Est Glom Filt Rate - Afr Amer 145 mL/min (>60); Estimated Creatinine Clearance 118.11 ml/min; Glucose 89 mg/dL (74-106); Potassium 3.1 mmol/L (3.5-5.1); Sodium Level 129 mmol/L (136-145)
[2019-09-19] MEDS: Aspirin 81 MG TAB.CHEW PO (09:36)
[2019-09-19] MEDS: Carvedilol 6.25 MG Tablet PO ×2 (09:36→16:09)
[2019-09-19] MEDS: Lisinopril 10 MG Tablet PO (09:37)
[2019-09-19] MEDS: Empagliflozin 25 MG Tablet PO (09:37)
[2019-09-19 11:59] LABS: Magnesium 2.1 mg/dL (1.6-2.6)
[2019-09-19] MEDS: Potassium Chloride 10mEq/100mL 10 MEQ/100 ML IV.SOLN. 100 MEQ IV BOLUS ×4 (12:28→16:08)
[2019-09-19 12:40] LABS: Bedside Glucose 92 mg/dL (70-110)
--- NOTE | 2019-09-19 14:17 | PN_ITS ---
Patient Problems: Active and Suspected Problems Meningitis versus encephalitis (Suspected) Acute encephalopathy (Acute) Septic shock (Acute) Reason for Visit: septic shock Subjective: No complaints other than intermittent fevers. Vitals/I&O's: Vital Signs Temp Pulse Resp BP Pulse Ox 37.0 C 79 18 134/78 H 96 09/19/19 09:00 09/19/19 09:00 09/19/19 09:00 09/19/19 09:00 09/19/19 09:00 Oxygen Flow Rate (L/min) 2 Oxygen Delivery Method Room Air Weight: 90.7 kg Body Mass Index (BMI) 29.7 Intake and Output for Last 24 Hours 09/17/19 09/18/19 09/19/19 23:59 23:59 23:59 Intake Total 1000 / 1000 6046.75 / 6678.75 2882.33 / 2882.33 Output Total 1100 / 1100 Balance 1000 / 1000 4946.75 / 5578.75 2882.33 / 2882.33 General: Alert, Cooperative, No apparent distress HEENT: Atraumatic, Normocephalic Oral: Moist Mucosa, No Gingival or Mucosal Lesions/ Ulcerations Lungs: Clear to auscultation, Normal air movement, No rhonchi, No wheeze, No rales Cardiovascular: Regular rate, Regular Rhythm, Normal S1, Normal S2, No murmurs Abdomen: Bowel Sounds Present, Soft, Non Tender, Non-Distended, No Hepato- splenomegaly Extremities: No edema, No Calf Tenderness Skin: No rashes, No breakdown Musculoskeletal: No Tenderness to Palpation of Joints or Extremities, No Muscle Wasting Neurological: - - negative kernig and brudniski's. no clonus Psych/Mental Status: Normal Affect, Appropriate Microbiology Past 72 Hours 09/17/19 23:35 Csf, Spinal Fluid Gram Stain - Final 09/17/19 23:35 Csf, Spinal Fluid CSF Culture - Preliminary No growth in 24 hours. Final to follow. 09/17/19 23:02 Mucosa - Nasopharyngeal Influenza Types A,B Direct FA (RISSA) - Final Laboratory Results 09/18/19 16:39: POC Glucose 195 H 09/18/19 21:14: POC Glucose 183 H 09/18/19 23:51: POC Glucose 149 H 09/19/19 05:44: POC Glucose 131 H 09/19/19 08:05: WBC 10.9, RBC 4.26 L, Hgb 14.7, Hct 41.1, MCV 96.5 H, MCH 34.5 H , MCHC 35.8, RDW Std Deviation 42.1, RDW Coeff of Abhi 11.9, Plt Count 132 L, MPV 10.3, Immature Gran % (Auto) 0.300, Neut % (Auto) 57.0, Lymph % (Auto) 29.6, [place] % (Auto) 12.6 H, Eos % (Auto) 0.1, Baso % (Auto) 0.4, Absolute Neuts (auto) 6.2, Absolute Lymphs (auto) 3.23, Nucleated RBC % 0 09/19/19 08:05: Sodium 129 L, Potassium 3.1 L, Chloride 96 L, Carbon Dioxide 28.0, Anion Gap 5, BUN 9, Creatinine 0.74, Estim Creat Clear Calc 118.11, Est GFR (MDRD) Af Amer 145, Est GFR (MDRD) Non-Af 120, BUN/Creatinine Ratio 12.2, Glucose 89, Calcium 7.6 L 09/19/19 08:05: Magnesium 2.1 09/19/19 12:29: POC Glucose 92 Current Medications Acetaminophen (Tylenol) 650 mg PO Q6H PRN PRN PRN Reason: Pain Score 1-10/Temp > 100.7 F Last Admin: 09/19/19 03:26 Dose: 650 mg Documented by: [facility] Last Admin: 09/19/19 09:36 Dose: 81 mg Documented by: Atorvastatin Calcium (Lipitor) 40 mg PO QHS [facility] Last Admin: 09/18/19 21:20 Dose: 40 mg Documented by: [facility]) [facility] Last Admin: 09/19/19 09:36 Dose: 6.25 mg Documented by: Empagliflozin (Jardiance) 25 mg PO DAILY [facility] Last Admin: 09/19/19 09:37 Dose: 25 mg Documented by: Enoxaparin Sodium (Lovenox) 40 mg SC DAILY [facility] Last Admin: 09/19/19 11:09 Dose: Not Given Documented by: Glucagon () 1 mg IM .X1 PRN PRN Reason: Hypoglycemia Sodium Chloride () 1,000 mls @ 100 mls/hr IV .Q10H ANGIE Last Infusion: 09/19/19 06:47 Dose: 100 mls/hr Documented by: Ceftriaxone Sodium 2 gm/ (Sodium Chloride) 50 mls @ 100 mls/hr IV Q24@2200 [facility] Last Infusion: 09/18/19 21:52 Dose: Infused Documented by: Vancomycin IV Pharmacy to Dose (1,000 ea/ Sodium Chloride) 250 mls @ 250 mls/hr IV PRN PRN Dextrose (Dextrose 10%-Water) 250 mls @ 999 mls/hr IV .Q16M PRN; Protocol PRN Reason: HYPOGLYCEMIA Sodium Chloride () 250 mls @ 15 mls/hr IV .[id number] PRN PRN Reason: Saline Flush Last Infusion: 09/19/19 00:00 Dose: 0 mls/hr Documented by: Sodium Chloride () 250 mls @ 15 mls/hr IV .[id number] PRN PRN Reason: Additional IVPB Infusion Acyclovir Sodium 600 mg/ (Dextrose) 262 mls @ 262 mls/hr IV Q8 [facility] Last Infusion: 09/19/19 06:47 Dose: Infused Documented by: Vancomycin HCl 1,500 mg/ (Sodium Chloride) 530 mls @ 250 mls/hr IV Q12H [facility] Last Infusion: 09/19/19 05:30 Dose: Infused Documented by: Famotidine 20 mg/ Sodium (Chloride) 10 mls @ 300 mls/hr IV Q12 [facility] Last Infusion: 09/19/19 10:09 Dose: Infused Documented by: Potassium Chloride () 10 meq in 100 mls @ 100 mls/hr IV BOLUS Q1H [facility] Stop: 09/19/19 15:59 Last Admin: 09/19/19 13:44 Dose: 100 mls/hr Documented by: Insulin Glargine (Lantus ([facility])) 70 units SC QHS [facility] Last Admin: 09/18/19 21:21 Dose: 70 u Documented by: Insulin Human Lispro (Humalog Kwikpen ([facility])) 0 unit SC Q6 [facility]; Protocol Last Admin: 09/19/19 12:29 Dose: Not Given Documented by: Lisinopril (Zestril) 10 mg PO DAILY [facility] Last Admin: 09/19/19 09:37 Dose: 10 mg Documented by: Ondansetron HCl (Zofran) 4 mg IV Q8H PRN PRN PRN Reason: NAUSEA/VOMITING Prasugrel (Effient) 10 mg PO DAILY [facility] Last Admin: 09/19/19 09:36 Dose: 10 mg Documented by: Sodium Chloride () 10 - 40 ml IV UD PRN PRN Reason: SALINE FLUSH Last Admin: 09/19/19 03:00 Dose: 10 ml Documented by: Medical Necessity - Tobacco Use Smoking Status: Current every day smoker Tobacco Use: Cigarettes Assessment/Plan All Active Problems Acute encephalopathy (Acute) Septic shock (Acute) 1. septic shock * POA with WBC of 13.4k, tachypnea and lactic acidosis of 5 * improved at this time. * was not hypotensive * 2/2 the underlying infection * UA negative * BCx pending as well as LP studies * CXR negative for infiltrate 2. possible meningitis/encephalitis * spinal fluid with elevated WBCs of 0.021, glucose 137 and protein 46 * VZV, enterovirtus, HSV titers pending. 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 DW [facility] neurology who advised a repeat MRI w and w/o contrast and if confirmed empyema, pt will nee neurosurgery evaluation. * ID consult 3. encephalopathy * resolved * 2/2 underling illness * tox screen negative 4. DM2 * high and uncontrolled * A1c 8.5 * metformin held given lactic acidosis * resume glargine, continue SSI * continue Jardiance * monitor for now before making adjustments to home regimen 5. VTE prophylaxis: mod risk. LMWH 6. Disposition: to PCU. Further hospitalization to be determined by response and Cx results. Discussed case extensively with his girlfriend (with his permission). Greater than 50 minutes of which greater than 50% of the time was counseling his family about the work up, encephalitis. Code Visit Inpatient E&M: 51788 Subs Hosp L3
[2019-09-19 15:02] LABS: Vancomycin, Trough Level 5.9 ug/mL (5.0-15.0)
[2019-09-19] MEDS: Insulin Lispro 100 UNIT/ML INSULN.PEN SC ×2 (17:18→23:52)
[2019-09-19 17:25] LABS: Bedside Glucose 207 mg/dL (70-110)
--- NOTE | 2019-09-19 18:14 | PCM.RX.CS ---
Consult Pharmacy has been consulted to manage selected antiobiotic: Vancomycin Type of Consult: Follow-up Suspected Infection: Sepsis Prior Doses of Antibiotics Received/Current Regimen: Medications Discontinued Medications Vancomycin HCl 1,500 mg/ (Sodium Chloride) 530 mls @ 250 mls/hr IV Q12H [facility] Last Admin: 09/19/19 15:50 Dose: 250 mls/hr Documented by: Labs: Sodium 129 mmol/L (136-145) L 09/19/19 08:05 Potassium 3.1 mmol/L (3.5-5.1) L 09/19/19 08:05 Chloride 96 mmol/L (98-107) L 09/19/19 08:05 Carbon Dioxide 28.0 mmol/L (21.0-32.0) 09/19/19 08:05 Anion Gap 5 (5-15) 09/19/19 08:05 BUN 9 mg/dL (7-18) 09/19/19 08:05 Creatinine 0.74 mg/dL (0.70-1.30) 09/19/19 08:05 Est GFR (MDRD) Af Amer 145 mL/min (>60) 09/19/19 08:05 Est GFR (MDRD) Non-Af 120 mL/min (>60) 09/19/19 08:05 BUN/Creatinine Ratio 12.2 RATIO (10-20) 09/19/19 08:05 Glucose 89 mg/dL (74-106) 09/19/19 08:05 Vancomycin Trough 5.9 ug/mL (5.0-15.0) 09/19/19 14:20 Microbiology: Microbiology 09/17/19 23:35 Csf, Spinal Fluid Gram Stain - Final 09/17/19 23:35 Csf, Spinal Fluid CSF Culture - Preliminary No growth in 24 hours. Final to follow. 09/17/19 23:02 Mucosa - Nasopharyngeal Influenza Types A,B Direct FA (RISSA) - Final Goal Trough: 15-20 mcg/mL Pharmacy Plan for Drug Dosing: The patient had a trough drawn prior to 4th total vancomycin dose which resulted in a value of 5.9 (~11.5hr level). The patient has had an improvement in renal function from the time of vancomycin initiation. Will plan on lowering the dose and increasing the frequency. Will redraw a trough in 4 doses to reassess dosing at that time. PLAN/RECOMMENDATIONS 1. Start vancomycin 1000mg IV Q8hrs 09/19/19 @2300 (8hrs from last scheduled dose) 2. Trough scheduled 09/21/19 3. Pharmacy Service will continue to monitor and adjust dosing as required.
[2019-09-19] MEDS: Atorvastatin Calcium 40 MG Tablet PO (21:54)
[2019-09-19 22:11] LABS: Bedside Glucose 156 mg/dL (70-110)
[2019-09-19] MEDS: Vancomycin IV 1,000 MG/200 ML BAG 200 MG IV (22:47)
[2019-09-20] VITALS (8 sets, daily range): BP systolic 131–138; BP diastolic 70–76; PULSE 55–74; RESP 16–18; TEMP 36.9–37.6; O2SAT 93–97
[2019-09-20 00:01] LABS: Bedside Glucose 217 mg/dL (70-110)
[2019-09-20 06:44] LABS: Absolute Neutrophil Count 8.4 X10^3/uL (2.0-7.7); Basophil# 0.03 X10^3/uL; Basophil% 0.2 % (0-1); Eosinophil# 0.03 X10^3/uL; Eosinophils% 0.2 % (0-5); Hematocrit 40.4 % (40-54); Hemoglobin 14.9 g/dL (13.0-16.5); Lymphocyte % 21.3 % (19-41); Mean Corp Hgb Conc 36.9 g/dL (32-36); Mean Corpuscular Hgb 34.5 pg (27.0-32.0); Mean Corpuscular Volume 93.5 fL (80-94); Mean Platelet Vol. 10.3 fl (6.2-12.0); Monocyte# 1.53 X10^3/uL; Monocyte% 12.1 % (0-10); NRBC Flagged by Analyzer 0 % (0-5); Neutrophil # 8.37 X10^3/uL (2.7-7.7); POSITIVE DIFFERENTIAL YES; Platelet Count 161 K/mm3 (150-450); RBC Distribution Width CV 11.7 % (11.6-14.6); RBC Distribution Width SD 39.8 fl (35.1-43.9); Red Blood Count 4.32 M/mm3 (4.6-6.2); White Blood Count 12.7 K/mm3 (4.4-11.0)
[2019-09-20] MEDS: Vancomycin IV 1,000 MG/200 ML BAG 200 MG IV ×2 (06:47→15:18)
[2019-09-20] MEDS: 0.9% Normal Saline 1,000 ML 100 ML IV (06:47)
[2019-09-20 06:50] LABS: Differential Indicated SCAN CRITERIA MET
[2019-09-20 07:01] LABS: Bedside Glucose 82 mg/dL (70-110)
[2019-09-20 07:09] LABS: Anion Gap 6 (5-15); BUN 7 mg/dL (7-18); BUN/Creat Ratio 10.5 RATIO (10-20); Calcium,Total 7.6 mg/dL (8.5-10.1); Chloride 95 mmol/L (98-107); Creatinine, Serum 0.67 mg/dL (0.70-1.30); EST Glomerular Filtration Rate 134 mL/min (>60); Est Glom Filt Rate - Afr Amer 163 mL/min (>60); Estimated Creatinine Clearance 130.45 ml/min; Glucose 67 mg/dL (74-106); Potassium 3.1 mmol/L (3.5-5.1); Sodium Level 128 mmol/L (136-145)
[2019-09-20 07:12] LABS: Differential Comment SCANNED
[2019-09-20] MEDS: Aspirin 81 MG TAB.CHEW PO (08:40)
[2019-09-20] MEDS: Carvedilol 6.25 MG Tablet PO ×2 (08:40→17:38)
[2019-09-20] MEDS: Empagliflozin 25 MG Tablet PO (08:41)
[2019-09-20] MEDS: Lisinopril 10 MG Tablet PO (08:42)
[2019-09-20] MEDS: Enoxaparin 40 MG/0.4 ML Syringe SC (08:44)
--- NOTE | 2019-09-20 09:00 | MRI_ITS ---
STUDY: MRI BRAIN WITH AND WITHOUT CONTRAST REASON FOR EXAM: Male, 48 years old. encephalitis, possible empyema; follow up to scan 09/18/19 TECHNIQUE: Standardized multiplanar fat and water weighted pulse sequences were obtained. Dotarem IV 18ml was administered for the contrast portion of the examination. COMPARISON: September 18, 2019 FINDINGS: There is prominent, stable, FLAIR and T2 hyperintensity within the right inferior medial temporal lobe and also involving the subinsular cortex. Again, these findings demonstrate associated restricted diffusion. There is stable, minimal left anteromedial temporal lobe FLAIR and T2 hyperintensity. There is no enhancement of these regions. Previously identified, subdural, partially enhancing fluid collection in the left parietal region, seen best currently on sequence #11 image 9 compared with sequence 4, image 10 appears mildly diminished in size. Normal size of the ventricles and extra-axial spaces for the patient''s age. Normal bilateral basal ganglia. Normal thalami. Normal flow voids within the major intracranial circulation suggesting patency by spin echo criteria. Normal venous enhancement. No pathologic enhancement. Normal sella turcica, pituitary gland, infundibular stalk, optic chiasm and hypothalamus. Normal tectal plate and pineal gland. Normal midbrain, kiara and medulla. Normal cerebellum. Normal basal cisterns. Normal bilateral temporal bones. Normal bilateral internal auditory canals. No demonstrated orbital abnormality, within the constraints of a routine brain study. Again seen is near complete filling of the right maxillary sinus with T2 hyperintensity appearing stable. Normal calvarium and skull base. Normal visualized soft tissue structures. Normal visualized upper cervical spine. MRI/Brain W/WO Contrast IMPRESSION: Stable reactive gliosis involving bilateral temporal lobes as above. No pathologic enhancement. Findings consistent with provided clinical history of encephalitis. Follow-up highly recommended. Mild interval diminution in size of left parietal extra-axial subdural fluid collection versus empyema. Electronically Signed: Michael Sherman MD at 16:29 EST , Service support ,
[2019-09-20 12:31] LABS: Bedside Glucose 86 mg/dL (70-110)
[2019-09-20 13:33] LABS: Pathologist Review Reviewed
--- NOTE | 2019-09-20 14:12 | CHAPLAIN ---
Type of Pastoral Visit _x__ Initial Visit ___ Follow-up Visit ___ On-call Visit ___ General Patient Visit ___ Spiritual Assessment ___ Family Conference ___ Bereavement ___ Rapid Response ___ Code Blue ___ Other (describe below) Pastoral Care Referral From _x__ Patient ___ Family ___ Nurse ___ Physician ___ Inspector Multifocal Lens ___ Criminal Justice Social Worker ___ Other (describe below) Sacrament/Intervention _x__ Active listening ___ Anointing ___ Buddhist ___ Bereavement ___ Communion ___ Gina exploration ___ ___ Life review ___ Prayer ___ Reconciliation ___ Sacrament of Sick _x__ Supportive presence ___ Wedding ___ Other (describe below) Pastoral Comments
--- NOTE | 2019-09-20 15:24 | PN_ITS ---
Patient Problems: Active and Suspected Problems Meningitis versus encephalitis (Suspected) Acute encephalopathy (Acute) Septic shock (Acute) Reason for Visit: sepsis Subjective: Feels better overall and family (at bedside) agree. Vitals/I&O's: Vital Signs Temp Pulse Resp BP Pulse Ox 37.6 C H 74 16 131/76 H 97 09/20/19 08:25 09/20/19 08:25 09/20/19 08:25 09/20/19 08:25 09/20/19 08:25 Oxygen Flow Rate (L/min) 2 Oxygen Delivery Method Room Air Weight: 89.3 kg Body Mass Index (BMI) 29.7 Intake and Output for Last 24 Hours 09/18/19 09/19/19 09/20/19 23:59 23:59 23:59 Intake Total 6046.75 / 6678.75 6565.15 / 6965.15 1915.34 / 1915.34 Output Total 1100 / 1100 1175 / 1175 Balance 4946.75 / 5578.75 6565.15 / 6965.15 740.34 / 740.34 General: Alert, Cooperative, No apparent distress HEENT: Atraumatic, Normocephalic Oral: Moist Mucosa, No Gingival or Mucosal Lesions/ Ulcerations, - - edentulous. Neck: No Nodes, Trachea Midline Lungs: Clear to auscultation, Normal air movement, No rhonchi, No wheeze, No rales Cardiovascular: Regular rate, Regular Rhythm, Normal S1, Normal S2 Abdomen: Bowel Sounds Present, Soft, Non Tender, Non-Distended Extremities: No edema, No Calf Tenderness Skin: No rashes, No breakdown Musculoskeletal: No Tenderness to Palpation of Joints or Extremities, No Muscle Wasting Psych/Mental Status: Normal Affect, Appropriate Microbiology Past 72 Hours 09/17/19 21:50 Blood Culture (Wb) - Anticubital Left Blood Culture - Preliminary No growth in 48 hours. 09/17/19 23:35 Csf, Spinal Fluid Gram Stain - Final 09/17/19 23:35 Csf, Spinal Fluid CSF Culture - Preliminary No growth in 48 hours. 09/17/19 22:35 Blood Culture (Wb) - Right Forearm Blood Culture - Preliminary No growth in 48 hours. 09/17/19 23:02 Mucosa - Nasopharyngeal Influenza Types A,B Direct FA (RISSA) - Final Laboratory Results 09/17/19 23:35: CSF Comment Reviewed 09/19/19 17:16: POC Glucose 207 H 09/19/19 21:43: POC Glucose 156 H 09/19/19 23:50: POC Glucose 217 H 09/20/19 03:30: WBC 12.7 H, RBC 4.32 L, Hgb 14.9, Hct 40.4, MCV 93.5, MCH 34.5 H , MCHC 36.9 H, RDW Std Deviation 39.8, RDW Coeff of Abhi 11.7, Plt Count 161, MPV 10.3, Immature Gran % (Auto) 0.200, Neut % (Auto) 66.0, Lymph % (Auto) 21.3, [place] % (Auto) 12.1 H, Eos % (Auto) 0.2, Baso % (Auto) 0.2, Absolute Neuts (auto) 8.4 H, Absolute Lymphs (auto) 2.70, Nucleated RBC % 0, Differential Comment SCANNED, Diff Path Review January09/20/19 03:30: Sodium 128 L, Potassium 3.1 L, Chloride 95 L, Carbon Dioxide 27.0, Anion Gap 6, BUN 7, Creatinine 0.67 L, Estim Creat Clear Calc 130.45, Est GFR (MDRD) Af Amer 163, Est GFR (MDRD) Non-Af 134, BUN/Creatinine Ratio 10.5, Glucose 67 L, Calcium 7.6 L 09/20/19 06:08: POC Glucose 82 09/20/19 12:26: POC Glucose 86 Current Medications Acetaminophen (Tylenol) 650 mg PO Q6H PRN PRN PRN Reason: Pain Score 1-10/Temp > 100.7 F Last Admin: 09/19/19 16:11 Dose: 650 mg Documented by: Aspirin ([facility]in, Baby) [facility] Last Admin: 09/20/19 08:40 Dose: 81 mg Documented by: Atorvastatin Calcium (Lipitor) 40 mg PO QHS [facility] Last Admin: 09/19/19 21:54 Dose: 40 mg Documented by: Carvedilol (Coreg) 6.[facility] Last Admin: 09/20/19 08:40 Dose: 6.25 mg Documented by: Empagliflozin (Jardiance) 25 mg PO DAILY [facility] Last Admin: 09/20/19 08:41 Dose: 25 mg Documented by: Enoxaparin Sodium (Lovenox) 40 mg SC DAILY [facility] Last Admin: 09/20/19 08:44 Dose: 40 mg Documented by: Glucagon () 1 mg IM .X1 PRN PRN Reason: Hypoglycemia Sodium Chloride () 1,000 mls @ 100 mls/hr IV .Q10H ANG[facility] Last Infusion: 09/20/19 08:40 Dose: 100 mls/hr Documented by: Ceftriaxone Sodium 2 gm/ (Sodium Chloride) 50 mls @ 100 mls/hr IV Q24@2200 [facility] Last Infusion: 09/19/19 22:18 Dose: Infused Documented by: Vancomycin IV Pharmacy to Dose (1,000 ea/ Sodium Chloride) 250 mls @ 250 mls/hr IV PRN PRN Dextrose (Dextrose 10%-Water) 250 mls @ 999 mls/hr IV .Q16M PRN; Protocol PRN Reason: HYPOGLYCEMIA Sodium Chloride () 250 mls @ 15 mls/hr IV .[id number] PRN PRN Reason: Saline Flush Last Infusion: 09/19/19 22:47 Dose: 0 mls/hr Documented by: Sodium Chloride () 250 mls @ 15 mls/hr IV .[id number] PRN PRN Reason: Additional IVPB Infusion Acyclovir Sodium 600 mg/ (Dextrose) 262 mls @ 262 mls/hr IV Q8 [facility] Last Admin: 09/20/19 15:18 Dose: 262 mls/hr Documented by: Famotidine 20 mg/ Sodium (Chloride) 10 mls @ 300 mls/hr IV Q12 [facility] Last Infusion: 09/20/19 08:55 Dose: Infused Documented by: Vancomycin HCl (Vancomycin) 1,000 mg in 200 mls @ 200 mls/hr IV Q8H [facility] Last Admin: 09/20/19 15:18 Dose: 200 mls/hr Documented by: Insulin Glargine (Lantus ([facility])) 70 units SC QHS [facility] Last Admin: 09/19/19 21:54 Dose: 70 u Documented by: Insulin Human Lispro (Humalog Kwikpen ([facility])) 0 unit SC Q6 [facility]; Protocol Last Admin: 09/20/19 13:33 Dose: Not Given Documented by: Lisinopril (Zestril) 10 mg PO DAILY [facility] Last Admin: 09/20/19 08:42 Dose: 10 mg Documented by: Ondansetron HCl (Zofran) 4 mg IV Q8H PRN PRN PRN Reason: NAUSEA/VOMITING Potassium Chloride (K-Dur) 40 meq PO BIDCM [facility] Last Admin: 09/20/19 08:41 Dose: 40 meq Documented by: Prasugrel (Effient) 10 mg PO DAILY [facility] Last Admin: 09/20/19 08:41 Dose: 10 mg Documented by: Sodium Chloride () 10 - 40 ml IV UD PRN PRN Reason: SALINE FLUSH Last Admin: 09/19/19 21:41 Dose: 10 ml Documented by: Medical Necessity - Tobacco Use Smoking Status: Current every day smoker Tobacco Use: Cigarettes Assessment/Plan All Active Problems Acute encephalopathy (Acute) Septic shock (Acute) 1. septic shock * POA with WBC of 13.4k, tachypnea and lactic acidosis of 5 * improved at this time. * was not hypotensive * 2/2 the underlying infection * UA negative * BCx pending as well as LP studies * CXR negative for infiltrate 2. possible meningitis/encephalitis * spinal fluid with elevated WBCs of 0.021, glucose 137 and protein 46 * VZV, enterovirtus, HSV titers pending. 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 DW [facility] neurology who advised a repeat MRI w and w/o contrast and if confirmed empyema, pt will nee neurosurgery evaluation. * ID consult 3. encephalopathy * resolved * 2/2 underling illness * tox screen negative 4. DM2 * high and uncontrolled * A1c 8.5 * metformin held given lactic acidosis * resume glargine, continue SSI * continue Jardiance * monitor for now before making adjustments to home regimen 5. VTE prophylaxis: mod risk. LMWH 6. Disposition: to PCU. Further hospitalization to be determined by response and Cx results. Discussed case extensively with his girlfriend (with his permission). Greater than 35 minutes of which greater than 50% of the time was counseling his family about the work up, encephalitis. Discussed with family at bedside during interdisciplinary rounds. Still waiting on MRI report and ID evaluation. Code Visit Inpatient E&M: 57874 Subs Hosp L3
--- NOTE | 2019-09-20 15:56 | PCM.HP.ID ---
Problem List (1) Meningitis versus encephalitis Status: Suspected Reason for Consult: encephalitis Consulted by: Dr. Soriano History of Present Illness: The patient is a 48 year old M with h/o DM, CAD, presented 09/18 with acute onset of confusion, trouble speaking/word finding. For several days prior had been having mild fever, nausea, headache. No neck pain or vision changes. No bug bites, rash, myalgia, sick contacts, travel. No oral ulcers. Taken to ED, found to have fever to 103, lactic acidosis, admitted on vanc, acyclovir, ceftriaxone. LP done. Feeling better, but mother reports not quite back to normal. Repeat MRI done today. Full ROS Performed and neg except as noted above. - Medical History Past Medical History (Chronic Problems): Chronic Problems Coronary artery disease status post sten (Chronic) Hyperlipidemia (Chronic) Type 2 diabetes mellitus (Chronic) Allergies/Adverse Reactions: Allergies Penicillins [PCN] Allergy (Verified 09/17/19 21:48) Rash Home Medications: Ambulatory Orders Medication Instructions Recorded Atorvastatin Calcium 40 mg PO DAILY 04/09/18 Canagliflozin [Invokana] 300 mg PO DAILY 04/09/18 Carvedilol 6.25 mg PO BID 04/09/18 Insulin Glargine,Hum.rec.anlog 75 unit SQ QHS 04/09/18 [Lantus] Lisinopril [Zestril] 10 mg PO DAILY 04/09/18 Sitagliptin Phos/Metformin HCl 1 tab PO DAILY 04/09/18 [Janumet Xr 100-1,000 mg Tablet] Aspirin 81 mg PO DAILY 09/18/19 Insulin Lispro [Humalog ([facility])] 15 unit SQ TID 09/18/19 Prasugrel HCl [Effient] 10 mg PO DAILY 09/18/19 - Social History SMOKING STATUS:: Current every day smoker Vital Signs Temp Pulse Resp BP Pulse Ox 98.5 F 57 L 18 131/73 H 96 09/20/19 15:20 09/20/19 15:20 09/20/19 15:20 09/20/19 15:20 09/20/19 15:20 Oxygen Flow Rate (L/min) 2 Oxygen Delivery Method Room Air Weight: 89.3 kg Body Mass Index (BMI) 29.7 Microbiology Past 72 Hours 09/17/19 21:50 Blood Culture - Preliminary Blood Culture (Wb) - Anticubital Left No growth in 48 hours. 09/17/19 23:35 Gram Stain - Final Csf, Spinal Fluid CSF Culture - Preliminary No growth in 48 hours. 09/17/19 22:35 Blood Culture - Preliminary Blood Culture (Wb) - Right Forearm No growth in 48 hours. 09/17/19 23:02 Influenza Types A,B Direct FA (RISSA) - Final Mucosa - Nasopharyngeal Laboratory Tests Past 24 Hrs 09/17/19 09/20/19 09/20/19 23:35 03:30 03:30 WBC 12.7 H RBC 4.32 L Hgb 14.9 Hct 40.4 MCV 93.5 MCH 34.5 H MCHC 36.9 H RDW Std Deviation 39.8 RDW Coeff of Abhi 11.7 Plt Count 161 MPV 10.3 Immature Gran % (Auto) 0.200 Neut % (Auto) 66.0 Lymph % (Auto) 21.3 [place] % (Auto) 12.1 H Eos % (Auto) 0.2 Baso % (Auto) 0.2 Absolute Neuts (auto) 8.4 H Absolute Lymphs (auto) 2.70 Nucleated RBC % 0 Differential Comment SCANNED Diff Path Review May foll Sodium 128 L Potassium 3.1 L Chloride 95 L Carbon Dioxide 27.0 Anion Gap 6 BUN 7 Creatinine 0.67 L Estim Creat Clear Calc 130.45 Est GFR (MDRD) Af Amer 163 Est GFR (MDRD) Non-Af 134 BUN/Creatinine Ratio 10.5 Glucose 67 L Calcium 7.6 L CSF Comment Reviewed - Other Studies Radiology: [] reviewed Other Studies: [] Route of nutrition/ use of supplements: [] Nutritional Intake: [] IV Site: [] Easley Catheter: [] - Physical Exam General: Alert, Oriented x3, Cooperative, No apparent distress HEENT: Atraumatic, PERRLA, EOMI Neck: Supple, No Nodes Lungs: Clear to auscultation, Normal air movement Cardiovascular: Regular rate, Regular Rhythm Abdomen: Soft, Non Tender, Non-Distended Extremities: No edema Skin: No rashes IV Site: Peripheral, without redness Musculoskeletal: No Tenderness to Palpation of Joints or Extremities Neurological: Cranial nerves II-XII grossly intact - Assessment/Plan Antibiotics: [] Assessment/Plan: [] Active and Suspected Problems Meningitis versus encephalitis (Suspected) Acute encephalopathy (Acute) Septic shock (Acute) Seems most consistent with viral encephalitis. If repeat MRI does not show empyema, ok to stop vanc and ceftriaxone. Continue acyclovir while hsv/vzv are pending. Overall much improved. Will follow, thank you.
--- NOTE | 2019-09-20 17:30 | DS.PCM_ITS ---
Discharge Date and Diagnosis - Problem List Patient Problems: Active and Suspected Problems Meningitis versus encephalitis (Suspected) Acute encephalopathy (Acute) Septic shock (Acute) Date of Admission: 09/17/19 Date of Discharge: 09/20/19 - Primary Discharge Diagnosis Active and Suspected Problems Meningitis versus encephalitis (Suspected) Acute encephalopathy (Acute) Septic shock (Acute) 1. septic shock * POA with WBC of 13.4k, tachypnea and lactic acidosis of 5 * improved at this time. * was not hypotensive * 2/2 the underlying infection * UA negative * BCx pending as well as LP studies * CXR negative for infiltrate 2. possible meningitis/encephalitis * spinal fluid with elevated WBCs of 0.021, glucose 137 and protein 46 * VZV, enterovirtus, HSV titers pending. 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 DW [facility] neurology who advised a repeat MRI w and w/o contrast and if confirmed empyema, pt will nee neurosurgery evaluation. Fluid collection noted on repeat MRI, but smaller. * ID consult 3. encephalopathy * resolved * 2/2 underling illness * tox screen negative 4. DM2 * high and uncontrolled * A1c 8.5 * metformin held given lactic acidosis * resume glargine, continue SSI * continue Jardiance * monitor for now before making adjustments to home regimen - Secondary Discharge Diagnosis Chronic Problems Coronary artery disease status post sten (Chronic) Hyperlipidemia (Chronic) Type 2 diabetes mellitus (Chronic) Hospital Course and Treatment Imaging Results: 09/20/19 09:00 Brain W/WO Contrast [MRI] Urgent Clinical Impression(s) from Imaging Studies Brain CT 09/17/19 22:00 IMPRESSION: Normal. ASPECT 10. Individualized dose optimization techniques were used for this CT. at 2258 Reported and signed by: Mazin Kennedy MD Electronically Signed: Mazin Kennedy MD at 22:57 EST Tel , Service support , Chest X-Ray 09/17/19 22:01 IMPRESSION: Normal. at 2221 Reported and signed by: Mazin Kennedy MD Electronically Signed: Mazin Kennedy MD at 22:20 EST Tel , Service support , Head MRA 09/18/19 06:42 IMPRESSION: Normal MRA of the head Electronically Signed: All Flores MD at 17:38 EST , Service support , Neck MRA 09/18/19 06:42 IMPRESSION: Atherosclerotic disease without evidence for hemodynamically significant stenosis utilizing NASCET criteria Electronically Signed: All Flores MD at 17:41 EST , Service support , Brain MRI 09/18/19 10:58 IMPRESSION: Nonspecific gliosis within the right temporal lobe and to a lesser extent the left temporal lobe which may be consistent with clinical history of encephalitis. There is also a very small left subdural effusion with enhancing membrane which may be consistent with small empyema. Clinical correlation is recommended Clinical correlation recommended Electronically Signed: All Flores MD at 17:37 EST , Service support , Brain MRI 09/20/19 09:00 IMPRESSION: Stable reactive gliosis involving bilateral temporal lobes as above. No pathologic enhancement. Findings consistent with provided clinical history of encephalitis. Follow-up highly recommended. Mild interval diminution in size of left parietal extra-axial subdural fluid collection versus empyema. Electronically Signed: Michael Sherman MD at 16:29 EST , Service support , DARSHANA Martinez neurology Operations: None Summary of Care Provided: The patient is a 48 year old M presents with septic shock and change in mental status. Patient had lumbar puncture that showed slightly elevated white blood cells, glucose and protein. Patient started empirically for meningitis with acyclovir, ceftriaxone and vancomycin. Patient's clinical status improved within 24 hours. Patient had an MRI that showed some left parietal fluid collection or swelling. Repeat MRI at the request of and suggestion of neurology was performed and 48 hours later. She was at definitive fluid collection in the subdural left parietal region noted to be smaller than previous. Clinically patient is much improved. Unfortunately, patient will need to be evaluated by neurosurgery about this subdural fluid collection. Patient is clinically improved and has no meningismus. Spoke with physician at [facility], Dr. Sarah, and agreed to accept the patient. The impetus for the patient's transfer is for neurosurgery evaluation though I do not necessarily anticipate the patient requiring any intervention at this time. Is been explained to the patient and his family and they expressed understanding. [] Patient Problems: Active and Suspected Problems Meningitis versus encephalitis (Suspected) Acute encephalopathy (Acute) Septic shock (Acute) - Physical Exam Vitals/I&O's: Vital Signs Temp Pulse Resp BP Pulse Ox 36.9 C 63 18 131/73 H 96 09/20/19 15:20 09/20/19 16:47 09/20/19 15:20 09/20/19 15:20 09/20/19 15:20 Oxygen Flow Rate (L/min) 2 Oxygen Delivery Method Room Air Weight: 89.3 kg Body Mass Index (BMI) 29.7 Intake and Output for Last 24 Hours 09/18/19 09/19/19 09/20/19 23:59 23:59 23:59 Intake Total 6046.75 / 6678.75 6565.15 / 6965.15 2578.67 / 2578.67 Output Total 1100 / 1100 1175 / 1175 Balance 4946.75 / 5578.75 6565.15 / 6965.15 1403.67 / 1403.67 Microbiology Past 72 Hours 09/17/19 21:50 Blood Culture (Wb) - Anticubital Left Blood Culture - Preliminary No growth in 48 hours. 09/17/19 23:35 Csf, Spinal Fluid Gram Stain - Final 09/17/19 23:35 Csf, Spinal Fluid CSF Culture - Preliminary No growth in 48 hours. 09/17/19 22:35 Blood Culture (Wb) - Right Forearm Blood Culture - Preliminary No growth in 48 hours. 09/17/19 23:02 Mucosa - Nasopharyngeal Influenza Types A,B Direct FA (RISSA) - Final Laboratory Results 09/17/19 23:35: CSF Comment Reviewed 09/19/19 21:43: POC Glucose 156 H 09/19/19 23:50: POC Glucose 217 H 09/20/19 03:30: WBC 12.7 H, RBC 4.32 L, Hgb 14.9, Hct 40.4, MCV 93.5, MCH 34.5 H , MCHC 36.9 H, RDW Std Deviation 39.8, RDW Coeff of Abhi 11.7, Plt Count 161, MPV 10.3, Immature Gran % (Auto) 0.200, Neut % (Auto) 66.0, Lymph % (Auto) 21.3, [place] % (Auto) 12.1 H, Eos % (Auto) 0.2, Baso % (Auto) 0.2, Absolute Neuts (auto) 8.4 H, Absolute Lymphs (auto) 2.70, Nucleated RBC % 0, Differential Comment SCANNED, Diff Path Review January09/20/19 03:30: Sodium 128 L, Potassium 3.1 L, Chloride 95 L, Carbon Dioxide 27.0, Anion Gap 6, BUN 7, Creatinine 0.67 L, Estim Creat Clear Calc 130.45, Est GFR (MDRD) Af Amer 163, Est GFR (MDRD) Non-Af 134, BUN/Creatinine Ratio 10.5, Glucose 67 L, Calcium 7.6 L 09/20/19 06:08: POC Glucose 82 09/20/19 12:26: POC Glucose 86 Current Medications Acetaminophen (Tylenol) 650 mg PO Q6H PRN PRN PRN Reason: Pain Score 1-10/Temp > 100.7 F Last Admin: 09/19/19 16:11 Dose: 650 mg Documented by: [facility], [facility]) [facility] Last Admin: 09/20/19 08:40 Dose: 81 mg Documented by: Atorvastatin Calcium (Lipitor) 40 mg PO QHS [facility] Last Admin: 09/19/19 21:54 Dose: 40 mg Documented by: Carvedil[facility] (Coreg) [facility] Last Admin: 09/20/19 08:40 Dose: 6.25 mg Documented by: Empagliflozin (Jardiance) 25 mg PO DAILY [facility] Last Admin: 09/20/19 08:41 Dose: 25 mg Documented by: Enoxaparin Sodium (Lovenox) 40 mg SC DAILY [facility] Last Admin: 09/20/19 08:44 Dose: 40 mg Documented by: Glucagon () 1 mg IM .X1 PRN PRN Reason: Hypoglycemia Sodium Chloride () 1,000 mls @ 100 mls/hr IV .Q10H ANGIE Last Infusion: 09/20/19 15:18 Dose: 0 mls/hr Documented by: Ceftriaxone Sodium 2 gm/ (Sodium Chloride) 50 mls @ 100 mls/hr IV Q24@2200 [facility] Last Infusion: 09/19/19 22:18 Dose: Infused Documented by: Vancomycin IV Pharmacy to Dose (1,000 ea/ Sodium Chloride) 250 mls @ 250 mls/hr IV PRN PRN Dextrose (Dextrose 10%-Water) 250 mls @ 999 mls/hr IV .Q16M PRN; Protocol PRN Reason: HYPOGLYCEMIA Sodium Chloride () 250 mls @ 15 mls/hr IV .[id number] PRN PRN Reason: Saline Flush Last Infusion: 09/19/19 22:47 Dose: 0 mls/hr Documented by: Sodium Chloride () 250 mls @ 15 mls/hr IV .[id number] PRN PRN Reason: Additional IVPB Infusion Acyclovir Sodium 600 mg/ (Dextrose) 262 mls @ 262 mls/hr IV Q8 [facility] Last Admin: 09/20/19 15:18 Dose: 262 mls/hr Documented by: Famotidine 20 mg/ Sodium (Chloride) 10 mls @ 300 mls/hr IV Q12 [facility] Last Infusion: 09/20/19 08:55 Dose: Infused Documented by: Vancomycin HCl (Vancomycin) 1,000 mg in 200 mls @ 200 mls/hr IV Q8H [facility] Last Admin: 09/20/19 15:18 Dose: 200 mls/hr Documented by: Insulin Glargine (Lantus (Bk)) 70 units SC QHS [facility] Last Admin: 09/19/19 21:54 Dose: 70 u Documented by: Insulin Human Lispro (Humalog Kwikpen ([place])) 0 unit SC Q6 [facility]; Protocol Last Admin: 09/20/19 13:33 Dose: Not Given Documented by: Lisinopril (Zestril) 10 mg PO DAILY [facility] Last Admin: 09/20/19 08:42 Dose: 10 mg Documented by: Ondansetron HCl (Zofran) 4 mg IV Q8H PRN PRN PRN Reason: NAUSEA/VOMITING Potassium Chloride (K-Dur) 40 meq PO BIDCM [facility] Last Admin: 09/20/19 08:41 Dose: 40 meq Documented by: Prasugrel (Effient) 10 mg PO DAILY [facility] Last Admin: 09/20/19 08:41 Dose: 10 mg Documented by: Sodium Chloride () 10 - 40 ml IV UD PRN PRN Reason: SALINE FLUSH Last Admin: 09/19/19 21:41 Dose: 10 ml Documented by: Discharge Diet: No Restrictions Discharge Activity: Return to Normal Activity Home Medications: Medications to take at Discharge Atorvastatin Calcium 40 mg PO DAILY 04/09/18 Canagliflozin [Invokana] 300 mg PO DAILY 04/09/18 Carvedilol 6.25 mg PO BID 04/09/18 Insulin Glargine,Hum.rec.anlog [Lantus] 75 unit SQ QHS 04/09/18 Lisinopril [Zestril] 10 mg PO DAILY 04/09/18 Sitagliptin Phos/Metformin HCl [Janumet Xr 100-1,000 mg Tablet] 1 tab PO DAILY 04/09/18 Aspirin 81 mg PO DAILY 09/18/19 Insulin Lispro [Humalog (BKC)] 15 unit SQ TID 09/18/19 Prasugrel HCl [Effient] 10 mg PO DAILY 09/18/19 Primary Care Physician: Jason Howell MD [Primary Care Provider] - Within 2 Weeks Please Follow Up With: Jason Howell MD Disposition: Acute care Hospital Minutes spent on discharge:: 60 Patient Condition:: Stable Medical Necessity - Tobacco Use Smoking Status: Current every day smoker Tobacco Use: Cigarettes Meaningful Use Info Meaningful Use Diagnoses (Choose all that apply): None applicable Code Visit Inpatient E&M: 10399 Disch Hosp
[2019-09-20] MEDS: Insulin Lispro 100 UNIT/ML INSULN.PEN SC (17:37)
[2019-09-20 17:45] LABS: Bedside Glucose 177 mg/dL (70-110)
[2019-09-21 08:08] LABS: HSV 1 By PCR Negative (Negative)
[2019-09-21 13:33] LABS: Pathologist Review Reviewed
[2019-09-21 15:36] LABS: Enterovirus By PCR Negative (Negative); HSV 2 By PCR Positive (Negative)
== END 2019-09-20 19:20 | disposition short-term general hospital (02) | DRG 871 ==
LOC: ED 22:18 → ICU 09-18 00:30 → PCU 09-18 21:04
PROVIDERS: Admitting Provider Hospitalist; Emergency Provider Emergency Medicine; Family Provider Family Medicine; PCP Family Medicine
DX: A41.9 Sepsis, unspecified organism (principal); R65.21 Severe sepsis with septic shock; G03.9 Meningitis, unspecified; G04.90 Encephalitis and encephalomyelitis, unspecified; G93.41 Metabolic encephalopathy; E11.65 Type 2 diabetes mellitus with hyperglycemia; F17.210 Nicotine dependence, cigarettes, uncomplicated; E78.5 Hyperlipidemia, unspecified; I25.10 Atherosclerotic heart disease of native coronary artery without angina pectoris; Z95.5 Presence of coronary angioplasty implant and graft; Z79.4 Long term (current) use of insulin
CPT/HCPCS: 36415; 62270; 70450; 70544; 70549; 70553; 71045; 80048; 80076; 80202; 80307; 80320; 81001; 82140; 82375; 82945; 82962; 83036; 83605; 83735; 84157; 84484; 85025; 87040; 87070; 87205; 87498; 87529; 87798; 87804; 89050; 89051; 93005; 97802; 97803; 99285; A9575; J7030; J7040; J7050; A4216; G0480; J0696; J3490

== ENCOUNTER → 2019-10-21 | Outpatient (CLI) | payer OTHER, SELFPAY ==
[2019-09-18 01:24] VITALS: BMI 29.7
--- NOTE | 2019-10-21 15:37 | MRI_ITS ---
STUDY: MRI BRAIN WITH AND WITHOUT CONTRAST REASON FOR EXAM: Male, 48 years old. F/U TO PRIOR ABNORMAL MRI, ON GOING CONFUSION, NEW -- ONSET BLURRY VISION TECHNIQUE: Standardized multiplanar fat and water weighted pulse sequences were obtained. IV 17CC DOTAREM was administered for the contrast portion of the examination. COMPARISON: 20 September 2019 FINDINGS: The disease has evolved and progressed since prior scan. There are now 3 new lesions with decreased diffusion located in the left mid internal capsule, left posterior corpus callosum and right lateral callosal capsular interface. The largest lesion is located in the left mid internal capsule measuring 1 cm and has ill defined faint enhancement. The callosal lesion has a more globular masslike enhancement. Right greater than left temporal cortical process has progressed to hemorrhagic necrosis with diffuse thick enhancement. There are no extra parenchymal fluid collections, mass effect, midline shift or hydrocephalus. Major vascular flow structures are preserved. MRI/Brain W/WO Contrast IMPRESSION: 1. Disease progression 2. Three new callosum/white matter lesions with decreased diffusion. 3. Right temporal lobe hemorrhagic cortical necrosis. 4. A complex disease process such as low-grade infection, versus lymphoma are in the differential diagnosis. Electronically Signed: Yayo Ramirez, at 18:19 EST Tel , Service support ,
== END | disposition home or self-care (01) ==
LOC: MRI 15:23
PROVIDERS: PCP Family Medicine; Referring Provider Family Medicine; Visit Provider Family Medicine
DX: B01.11 Varicella encephalitis and encephalomyelitis (principal)
CPT/HCPCS: 70553; A9575

== ENCOUNTER → 2019-10-28 | Outpatient (CLI) | payer OTHER, SELFPAY ==
[2019-09-18 01:24] VITALS: BMI 29.7
[2019-10-28 14:10] LABS: Erythrocyte Sedimentation Rate 8 mm/hr (0-15)
[2019-10-28 14:12] LABS: Absolute Lymphocyte Count 2.62 X10^3/uL (0.83-4.51); Absolute Neutrophil Count 7.2 X10^3/uL (2.0-7.7); Basophil# 0.05 X10^3/uL; Basophil% 0.4 % (0-1); Eosinophil# 0.23 X10^3/uL; Hematocrit 49.6 % (40-54); Lymphocyte # 2.62 X10^3/ul (4.0); Lymphocyte % 23.3 % (19-41); Mean Corp Hgb Conc 34.3 g/dL (32-36); Mean Corpuscular Hgb 34.8 pg (27.0-32.0); Mean Corpuscular Volume 101.6 fL (80-94); Mean Platelet Vol. 10.7 fl (6.2-12.0); Monocyte# 1.12 X10^3/uL; Monocyte% 9.9 % (0-10); NRBC Flagged by Analyzer 0 % (0-5); Neutrophil # 7.19 X10^3/uL (2.7-7.7); Platelet Count 202 K/mm3 (150-450); RBC Distribution Width CV 13.6 % (11.6-14.6); RBC Distribution Width SD 51.8 fl (35.1-43.9); Red Blood Count 4.88 M/mm3 (4.6-6.2); White Blood Count 11.3 K/mm3 (4.4-11.0)
[2019-10-28 14:25] LABS: Vitamin D,25 Hydroxy 13.4 ng/mL (29.95-100.01)
[2019-10-28 14:31] LABS: ALB/GLOB Ratio 1.1 RATIO (0.9-2.4); AST(SGOT) 22 U/L (15-37); Alanine Aminotransfer ALT/SGPT 51 U/L (16-61); Albumin, Serum 4.4 g/dL (3.2-5.0); Alkaline Phosphatase 79 U/L (45-117); Anion Gap 7 (5-15); BUN 17 mg/dL (7-18); BUN/Creat Ratio 17.7 RATIO (10-20); Calcium,Total 9.5 mg/dL (8.5-10.1); Chloride 100 mmol/L (98-107); Creatinine, Serum 0.96 mg/dL (0.70-1.30); EST Glomerular Filtration Rate 89 mL/min (>60); Est Glom Filt Rate - Afr Amer 107 mL/min (>60); Globulin 3.9 g/dL (2.2-4.2); Glucose 175 mg/dL (74-106); Potassium 4.1 mmol/L (3.5-5.1); Protein, Total 8.3 g/dL (6.4-8.2); Sodium Level 133 mmol/L (136-145); Thyroid Stim Hormone (TSH) 1.38 uIU/mL (0.358-3.74)
== END | disposition home or self-care (01) ==
LOC: MTLAB 12:32
PROVIDERS: PCP Family Medicine; Referring Provider Family Medicine; Visit Provider Family Medicine
DX: R53.83 Other fatigue (principal)
CPT/HCPCS: 36415; 80053; 82306; 84443; 85025; 85652

== ENCOUNTER → 2019-12-16 10:06 | Outpatient (CLI) | payer OTHER, SELFPAY ==
[2019-09-18 01:24] VITALS: BMI 29.7
[2019-12-16 12:22] LABS: Erythrocyte Sedimentation Rate 2 mm/hr (0-15)
[2019-12-16 12:23] LABS: Absolute Lymphocyte Count 3.29 X10^3/uL (0.83-4.51); Absolute Neutrophil Count 8.5 X10^3/uL (2.0-7.7); Basophil# 0.05 X10^3/uL; Basophil% 0.4 % (0-1); Eosinophils% 0.8 % (0-5); Hematocrit 50.7 % (40-54); Hemoglobin 17.6 g/dL (13.0-16.5); Lymphocyte # 3.29 X10^3/ul (4.0); Lymphocyte % 24.9 % (19-41); Mean Corp Hgb Conc 34.7 g/dL (32-36); Mean Corpuscular Hgb 36.5 pg (27.0-32.0); Mean Corpuscular Volume 105.2 fL (80-94); Mean Platelet Vol. 10.5 fl (6.2-12.0); Monocyte# 1.25 X10^3/uL; Monocyte% 9.5 % (0-10); NRBC Flagged by Analyzer 0 % (0-5); Neutrophil # 8.48 X10^3/uL (2.7-7.7); Platelet Count 182 K/mm3 (150-450); RBC Distribution Width CV 14.2 % (11.6-14.6); RBC Distribution Width SD 55.8 fl (35.1-43.9); Red Blood Count 4.82 M/mm3 (4.6-6.2); White Blood Count 13.2 K/mm3 (4.4-11.0)
[2019-12-16 12:41] LABS: ALB/GLOB Ratio 1.3 RATIO (0.9-2.4); AST(SGOT) 24 U/L (15-37); Alanine Aminotransfer ALT/SGPT 53 U/L (16-61); Albumin, Serum 4.4 g/dL (3.2-5.0); Alkaline Phosphatase 78 U/L (45-117); Anion Gap 6 (5-15); BUN 21 mg/dL (7-18); Calcium,Total 9.2 mg/dL (8.5-10.1); Chloride 101 mmol/L (98-107); Creatinine, Serum 0.75 mg/dL (0.70-1.30); EST Glomerular Filtration Rate 118 mL/min (>60); Est Glom Filt Rate - Afr Amer 142 mL/min (>60); Globulin 3.3 g/dL (2.2-4.2); Glucose 59 mg/dL (74-106); Potassium 3.7 mmol/L (3.5-5.1); Prealbumin 27.7 mg/dL (20.0-40.0); Protein, Total 7.7 g/dL (6.4-8.2); Sodium Level 138 mmol/L (136-145); Thyroid Stim Hormone (TSH) 0.63 uIU/mL (0.358-3.74)
== END ==
PROVIDERS: PCP Family Medicine; Visit Provider Family Medicine
DX: R63.4 Abnormal weight loss (principal)
CPT/HCPCS: 36415; 80053; 84134; 84443; 85025; 85652

== ENCOUNTER → 2021-02-07 16:52 | Outpatient (CLI) | payer MEDICAID, SELFPAY ==
[2019-09-18 01:24] VITALS: BMI 29.7
[2021-02-07 17:47] LABS: Absolute Neutrophil Count 5.5 X10^3/uL (2.0-7.7); Basophil# 0.05 X10^3/uL; Basophil% 0.6 % (0-1); Eosinophil# 0.16 X10^3/uL; Eosinophils% 1.9 % (0-5); Hematocrit 46.3 % (40-54); Hemoglobin 16.2 g/dL (13.0-16.5); Lymphocyte % 26.8 % (19-41); Mean Corpuscular Hgb 34.8 pg (27.0-32.0); Mean Corpuscular Volume 99.4 fL (80-94); Mean Platelet Vol. 11.8 fl (6.2-12.0); Monocyte# 0.57 X10^3/uL; Monocyte% 6.6 % (0-10); NRBC Flagged by Analyzer 0 % (0-5); Neutrophil # 5.48 X10^3/uL (2.7-7.7); Neutrophil % 63.8 % (47-70); Platelet Count 156 K/mm3 (150-450); RBC Distribution Width CV 11.9 % (11.6-14.6); RBC Distribution Width SD 43.7 fl (35.1-43.9); Red Blood Count 4.66 M/mm3 (4.6-6.2); White Blood Count 8.6 K/mm3 (4.4-11.0)
[2021-02-07 18:00] LABS: Erythrocyte Sedimentation Rate 12 mm/hr (0-20)
[2021-02-07 18:15] LABS: Vitamin B12 252 pg/mL (211-911); Vitamin D,25 Hydroxy 14.2 ng/mL
[2021-02-07 18:24] LABS: ALB/GLOB Ratio 1.1 RATIO (0.9-2.4); AST(SGOT) 13 U/L (15-37); Alanine Aminotransfer ALT/SGPT 18 U/L (16-61); Albumin, Serum 3.6 g/dL (3.2-5.0); Alkaline Phosphatase 123 U/L (45-117); Anion Gap 9 (5-15); BUN 8 mg/dL (7-18); BUN/Creat Ratio 10.3 RATIO (10-20); Calcium,Total 8.8 mg/dL (8.5-10.1); Chloride 96 mmol/L (98-107); Creatinine, Serum 0.78 mg/dL (0.70-1.30); EST Glomerular Filtration Rate 112 mL/min (>60); Est Glom Filt Rate - Afr Amer 136 mL/min (>60); Globulin 3.2 g/dL (2.2-4.2); Glucose 412 mg/dL (74-106); Iron 155 ug/dL (65-175); Protein, Total 6.8 g/dL (6.4-8.2); Sodium Level 132 mmol/L (136-145); Thyroid Stim Hormone (TSH) 1.03 uIU/mL (0.358-3.74)
[2021-02-07 20:20] LABS: Hemoglobin A1c > 16.0 % (3.8-5.6)
== END ==
PROVIDERS: PCP Family Medicine; Referring Provider Family Medicine; Visit Provider Family Medicine
DX: E11.9 Type 2 diabetes mellitus without complications (principal); B01.11 Varicella encephalitis and encephalomyelitis; R25.2 Cramp and spasm; R68.89 Other general symptoms and signs
CPT/HCPCS: 36415; 80053; 82306; 82607; 83036; 83540; 84403; 84443; 85025; 85652

== ENCOUNTER → 2021-02-22 17:49 | Outpatient (CLI) | payer MEDICAID, SELFPAY ==
[2019-09-18 01:24] VITALS: BMI 29.7
--- NOTE | 2021-02-22 17:57 | MRI_ITS ---
STUDY: MRI BRAIN WITH AND WITHOUT CONTRAST REASON FOR EXAM: Male, 50 years old. MOOD CHANGES TECHNIQUE: Standardized multiplanar fat and water weighted pulse sequences were obtained. IV Yes dotarem was administered for the contrast portion of the examination. COMPARISON: MRI of the brain 10/21/2019. FINDINGS: Mild atrophy and periventricular white matter ischemic changes without mass effect or restricted fusion.. Gliosis in the right frontal temporal region with porencephalic dilatation of the temporal horn of the right lateral ventricle consistent with old infarct or other nonspecific brain injury. Old lacunar infarct left basal ganglia.. Normal thalami. There is no extra-axial fluid accumulation. Normal flow voids within the major intracranial circulation suggesting patency by spin echo criteria. Normal venous enhancement. There is no enhancing intra-axial or extra-axial abnormality. Normal sella turcica, pituitary gland, infundibular stalk, optic chiasm and hypothalamus. Normal tectal plate and pineal gland. Normal midbrain, kiara and medulla. Normal cerebellum. Normal basal cisterns. Normal bilateral temporal bones. Normal bilateral internal auditory canals. No demonstrated orbital abnormality, within the constraints of a routine brain study. Complex mucosal thickening within the right maxillary sinus.. Normal calvarium and skull base. 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 MRI/Brain W/WO Contrast IMPRESSION: Mild atrophy and periventricular white matter ischemic changes. 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 No evidence for acute infarct Electronically Signed: All Flores MD at 16:45 EDT , Service support ,
== END ==
PROVIDERS: PCP Family Medicine; Visit Provider Family Medicine
DX: R45.86 Emotional lability (principal)
CPT/HCPCS: 70553; A9575

== ENCOUNTER → 2021-04-27 08:53 | Outpatient (CLI) | payer MEDICAID, SELFPAY ==
[2021-04-26 10:55] VITALS: BMI 26.6
[2021-04-27 10:51] LABS: Anion Gap 5 (5-15); BUN 9 mg/dL (7-18); BUN/Creat Ratio 10.9 RATIO (10-20); Calcium,Total 8.8 mg/dL (8.5-10.1); Chloride 99 mmol/L (98-107); Creatinine, Serum 0.83 mg/dL (0.70-1.30); EST Glomerular Filtration Rate 105 mL/min (>60); Est Glom Filt Rate - Afr Amer 127 mL/min (>60); Glucose 227 mg/dL (74-106); Potassium 4.1 mmol/L (3.5-5.1); Sodium Level 133 mmol/L (136-145)
[2021-05-02 10:07] LABS: Vitamin B1, Thiamine 183.5 nmol/L (66.5-200.0)
== END ==
PROVIDERS: PCP Family Medicine; Referring Provider Psychiatry & Neurology Neurology; Visit Provider Psychiatry & Neurology Neurology
DX: E87.1 Hypo-osmolality and hyponatremia (principal); G93.49 Other encephalopathy
CPT/HCPCS: 36415; 80048; 82746; 84425

== ENCOUNTER 2021-11-05 10:16 | Outpatient (CLI) | payer MEDICAID, SELFPAY ==
[2021-11-05 14:20] LABS: ALB/GLOB Ratio 1.1 RATIO (0.9-2.4); AST(SGOT) 34 U/L (15-37); Alanine Aminotransfer ALT/SGPT 56 U/L (16-61); Alkaline Phosphatase 94 U/L (45-117); Anion Gap 7 (5-15); BUN 12 mg/dL (7-18); BUN/Creat Ratio 13.5 RATIO (10-20); Calcium,Total 8.9 mg/dL (8.5-10.1); Chloride 104 mmol/L (98-107); Cholesterol 179 mg/dL (200); Creatinine, Serum 0.89 mg/dL (0.70-1.30); EST Glomerular Filtration Rate 96 mL/min (>60); Est Glom Filt Rate - Afr Amer 116 mL/min (>60); Globulin 3.7 g/dL (2.2-4.2); Glucose 143 mg/dL (74-106); High Density Lipoprotein 38 mg/dL; Potassium 4.2 mmol/L (3.5-5.1); Protein, Total 7.7 g/dL (6.4-8.2); Sodium Level 139 mmol/L (136-145); Thyroid Stim Hormone (TSH) 1.29 uIU/mL (0.358-3.74); Triglycerides 164 mg/dL; Very Low Density Lipoprotein 33 mg/dL (5-40)
== END 2021-11-05 23:59 | disposition home or self-care (01) ==
LOC: MFPLAB 10:18
PROVIDERS: PCP Family Medicine; Visit Provider Family Medicine
DX: E11.9 Type 2 diabetes mellitus without complications (principal)
CPT/HCPCS: 36415; 80053; 80061; 84443

== ENCOUNTER 2022-01-10 09:36 | Outpatient (CLI) | payer MEDICAID, SELFPAY ==
[2022-01-10 13:00] LABS: Cholesterol 91 mg/dL (200); High Density Lipoprotein 29 mg/dL; Triglycerides 176 mg/dL; Very Low Density Lipoprotein 35 mg/dL (5-40)
== END 2022-01-10 23:59 | disposition home or self-care (01) ==
LOC: MFPLAB 09:37
PROVIDERS: PCP Family Medicine; Referring Provider Family Medicine; Visit Provider Family Medicine
DX: E78.5 Hyperlipidemia, unspecified (principal)
CPT/HCPCS: 36415; 80061

== ENCOUNTER → 2022-04-11 | Outpatient (CLI) | payer MEDICARE, MEDICAID, SELFPAY ==
[2022-04-11 10:31] LABS: Vitamin B12 296 pg/mL (211-911)
[2022-04-11 10:39] LABS: ALB/GLOB Ratio 1.2 RATIO (0.9-2.4); AST(SGOT) 22 U/L (15-37); Alanine Aminotransfer ALT/SGPT 32 U/L (16-61); Albumin, Serum 4.1 g/dL (3.2-5.0); Alkaline Phosphatase 97 U/L (45-117); Anion Gap 6 (5-15); BUN 13 mg/dL (7-18); BUN/Creat Ratio 12.9 RATIO (10-20); Calcium,Total 9.2 mg/dL (8.5-10.1); Chloride 99 mmol/L (98-107); Cholesterol 75 mg/dL (200); Creatinine, Serum 1.01 mg/dL (0.70-1.30); EST Glomerular Filtration Rate 83 mL/min (>60); Est Glom Filt Rate - Afr Amer 100 mL/min (>60); Globulin 3.5 g/dL (2.2-4.2); Glucose 251 mg/dL (74-106); High Density Lipoprotein 28 mg/dL; PSA,Total - Annual Screen 0.29 ng/mL (0.00-4.00); Potassium 4.2 mmol/L (3.5-5.1); Protein, Total 7.6 g/dL (6.4-8.2); Sodium Level 133 mmol/L (136-145); Triglycerides 247 mg/dL; Very Low Density Lipoprotein 49 mg/dL (5-40)
== END | disposition home or self-care (01) ==
LOC: MFPLAB 09:12
PROVIDERS: PCP Family Medicine; Referring Provider Family Medicine; Visit Provider Family Medicine
DX: E11.9 Type 2 diabetes mellitus without complications (principal); Z12.5 Encounter for screening for malignant neoplasm of prostate
CPT/HCPCS: 84153; 36415; 80053; 80061; 82607; G0103

== ENCOUNTER → 2022-07-08 | Outpatient (CLI) | payer MEDICARE, MEDICAID, SELFPAY ==
[2022-07-08 12:51] LABS: Anion Gap 8 (5-15); BUN 19 mg/dL (7-18); BUN/Creat Ratio 21.7 RATIO (10-20); Calcium,Total 9.7 mg/dL (8.5-10.1); Chloride 104 mmol/L (98-107); Creatinine, Serum 0.88 mg/dL (0.70-1.30); EST Glomerular Filtration Rate 97 mL/min (>60); Est Glom Filt Rate - Afr Amer 118 mL/min (>60); Glucose 152 mg/dL (74-106); Potassium 4.3 mmol/L (3.5-5.1); Sodium Level 139 mmol/L (136-145)
== END | disposition home or self-care (01) ==
LOC: MFPLAB 09:43
PROVIDERS: PCP Family Medicine; Referring Provider Family Medicine; Visit Provider Family Medicine
DX: E11.9 Type 2 diabetes mellitus without complications (principal); Z23 Encounter for immunization
CPT/HCPCS: 36415; 80048

== ENCOUNTER → 2023-05-14 | Outpatient (CLI) | payer MEDICARE, MEDICAID, SELFPAY ==
[2023-05-14 12:30] LABS: Vitamin B12 663 pg/mL (211-911); Vitamin D,25 Hydroxy 76.3 ng/mL
[2023-05-14 12:34] LABS: ALB/GLOB Ratio 1.2 RATIO (0.9-2.4); AST(SGOT) 21 U/L (15-37); Alanine Aminotransfer ALT/SGPT 33 U/L (16-61); Albumin, Serum 4.1 g/dL (3.2-5.0); Alkaline Phosphatase 88 U/L (45-117); Anion Gap 4 (5-15); BUN 9 mg/dL (7-18); Chloride 103 mmol/L (98-107); Creatinine, Serum 0.82 mg/dL (0.70-1.30); EST Glomerular Filtration Rate 105 mL/min (>60); Est Glom Filt Rate - Afr Amer 127 mL/min (>60); Globulin 3.4 g/dL (2.2-4.2); Glucose 108 mg/dL (74-106); PSA,Total - Annual Screen 0.29 ng/mL (0.00-4.00); Potassium 4.3 mmol/L (3.5-5.1); Protein, Total 7.5 g/dL (6.4-8.2); Sodium Level 136 mmol/L (136-145); Thyroid Stim Hormone (TSH) 1.45 uIU/mL (0.358-3.74)
== END | disposition home or self-care (01) ==
LOC: MFPLAB 10:02
PROVIDERS: PCP Family Medicine; Visit Provider Family Medicine
DX: E11.65 Type 2 diabetes mellitus with hyperglycemia (principal); E55.9 Vitamin D deficiency, unspecified; E53.8 Deficiency of other specified B group vitamins; Z12.5 Encounter for screening for malignant neoplasm of prostate
CPT/HCPCS: 36415; 80053; 82306; 82607; 84153; 84403; 84443; G0103